=== PATIENT | male | born 1955 | race Caucasian/White ===

== ENCOUNTER 2025-04-29 11:25 | Inpatient (IN) | payer MEDICARE, OTHER, SELFPAY ==
[2025-04-29] VITALS (27 sets, daily range): BP systolic 92–137; BP diastolic 51–67; PULSE 69–85; RESP 13–25; TEMP 36.8–37.5; O2SAT 95–100; BMI 24.8
--- NOTE | ~2025-04-29 | CT_ITS ---
EXAMINATION: CT angiogram, abdomen and pelvis with contrast, GI bleed protocol: DATE: 04/29/2025, 2:09 PM. INDICATION: GI bleed. Prior medical history not available. TECHNIQUE: CT angiogram was performed with 100 cc of IV contrast in arterial phase of the abdomen and pelvis and reviewed in multiple projections. Radiation dose 380 MG Y C.M. COMPARISON: No prior imaging studies are available for comparison. FINDINGS: Lung bases show small to moderate size right pleural effusion and minimal left pleural effusion. Arterial phase examination through upper abdomen shows large ill-defined masses of the liver, predominantly involving left lobe with arterial phase enhancement. Significant thickening of the wall of the fundus of the stomach is noted. G-tube is in place. There is no evidence of arterial contrast extravasation into the GI tract. Moderate atherosclerotic disease of the proximal superior mesenteric artery. No free fluid noted in the peritoneal cavity. No lytic or blastic bone changes of lumbar spine and pelvic bones. Multilevel degenerative disc disease. IMPRESSION: 1. Limited evaluation due to lack of clinical and medical history and prior imaging studies for comparison. 2. There is no extravasation of arterial phase contrast within the GI tract. Delayed postcontrast phase was not obtained. 3. Irregular multiple arterial phase enhancing liver masses suggestive of metastatic disease to the liver or multifocal primary malignancy. 4. G-tube in place within the gastric antrum. Significant wall thickening of the gastric fundus and distal esophagus noted in the upper abdomen. Possible neoplasm of the esophagus and proximal stomach. Please correlate with clinical history. 5. Bilateral pleural effusion, [id number] on the right and minimal on the left. Reviewed, dictated and finalized at location [facility]. E OPERATOR IMPRESSION: 1. Limited evaluation due to lack of clinical and medical history and prior migel ging studies for comparison. 2. There is no extravasation of arterial phase contrast within the GI tract. De layed postcontrast phase was not obtained. 3. Irregular multiple arterial phase enhancing liver masses suggestive of metas tatic disease to the liver or multifocal primary malignancy. 4. G-tube in place within the gastric antrum. Significant wall thickening of th e gastric fundus and distal esophagus noted in the upper abdomen. Possible neop lasm of the esophagus and proximal stomach. Please correlate with clinical hist ory. 5. Bilateral pleural effusion, [id number] on the right and minimal on th e left.
[2025-04-29 13:13] LABS: Immature Granulocyte Percent A 0.8 % (0-0.5); Lymphocytes Absolute Auto 0.63 K/mm3 (0.9-3.2); Mean Corpuscular HGB Conc 31.0 g/dl (32-36); Mean Corpuscular Hemoglobin 24.3 pg (26-34); Mean Corpuscular Volume 78.4 fl (80-100); Nucleated Red Blood Cells Absolute Auto 0.000 K/mm3 (0.0-0.012); Nucleated Red Blood Cells Perc 0.0 % (0.0-0.2); Platelet Count Result 343 k/mm3 (150-375); Red Blood Count 2.59 M/mm3 (4.6-6.20); White Blood Count 7.8 K/mm3 (4.5-10.0)
[2025-04-29 13:17] LABS: Hematocrit 20.3 % (42.0-52.0); Hemoglobin 6.3 g/dL (14.0-18.0)
[2025-04-29 13:24] LABS: INR 1.3; Prothrombin Time 16.0 Seconds (11.1-14.7)
[2025-04-29 13:30] LABS: Alanine Aminotransferase 15 U/L (6-50); Albumin Level 2.8 g/dL (3.5-5.1); Alkaline Phosphatase 151 U/L (38-126); Anion Gap 2 mmol/L (4-12); Aspartate Amino Transferase 40 U/L (17-59); Bilirubin,Total 0.4 mg/dL (0.2-1.3); Blood Urea Nitrogen 17 mg/dL (9-20); Calcium 9.8 mg/dL (8.4-10.2); Carbon Dioxide 32 mmol/L (22-30); Chloride 97 mmol/L (98-107); Estimated CRCL calculation 60 ml/min; Estimated Glomerular Filt Rate > 60; Glucose 87 mg/dL (65-110); Potassium 4.3 mmol/L (3.4-5.0); Sodium 131 mmol/L (137-145); Total Protein 6.3 g/dL (6.3-8.2)
[2025-04-29] MEDS: CENTRAL LINE FLUSH 10 ML IV PUSH (14:09)
[2025-04-29] MEDS: SODIUM CHLORIDE 0.9% IV 1,000 ML 150 ML IV CONT (14:09)
[2025-04-29] MEDS: PANTOPRAZOLE SODIUM IV 40 MG VIAL IV PUSH ×2 (14:09→17:35)
--- NOTE | 2025-04-29 15:01 | ED_ITS ---
HPI - General Adult General Chief complaint: Recheck/Abnormal Lab/Rx Stated complaint: low hgb Time Seen by Provider: 04/29/25 12:30 Source: patient and family Mode of arrival: wheelchair Limitations: no limitations History of Present Illness HPI narrative: 70-year-old with a history of metastatic esophageal CA here with a complains of having low hemoglobin. Patient states that 2 weeks ago he received 2 units of blood in [place] where he is from his presently visiting his son here locally had blood work done yesterday which showed a hemoglobin of 6.9 was advised by his oncologist to go to the emergency room. Patient states that he has been having black color stool. Has a left upper quadrant pain which is been ongoing for quite some time. Denies any shortness of breath. No history of fever or chills. Onset (ago): day(s) (1) Location: abdomen Radiation: non-radiation Severity: mild Relieving factors: none Exacerbating factors: none Associated symptoms: denies other symptoms Related Data Allergies Allergy/AdvReac Type Severity Reaction Status Date / Time No Known Allergies Allergy Verified 04/29/25 12:47 Review of Systems 2 Review of Systems: All systems reviewed & are unremarkable except as noted in HPI and below Constitutional: Constitutional: Reports no additional constitutional complaints Eyes: Eyes: Reports no additional eye complaints ENT: Reports system reviewed and no additional complaints, except as documented Respiratory: Respiratory: Reports no additional respiratory complaints Gastrointestinal: Gastrointestinal: Reports as per HPI Musculoskeletal: Musculoskeletal: Reports no additional musculoskeletal complaints Exam 2 Narrative: GENERAL: Well-appearing, well-nourished, and in no acute distress. HEAD: Normocephalic, atraumatic. EYES: PERRLA and EOMI. ENT: Nares clear, no rhinorrhea or epistaxis. Mucous membranes moist. NECK: Supple. CHEST: Clear to auscultation. No respiratory distress. HEART: Regular rate and rhythm. No murmur heard. Normal peripheral pulses. ABDOMEN: Soft, , has G tube ,mild tenderness in the LUQ , nondistended, normal active bowel sounds. EXTREMITIES: Normal range of motion. No edema. SKIN: Warm, dry, no rash. NEURO: No focal deficits. Alert and oriented x3. PSYCH: Normal mood and affect. Course Course Emergency Course: Notified patient and his about the lab work, CT findings. Discussed with Dr. Mras will consult the patient. Will transfuse PRBC 2 units here in the hospital. Vital Signs Vital signs: Vital Signs Temperature 37.0 C 04/29/25 11:34 Pulse Rate 73 04/29/25 11:34 Respiratory Rate 18 04/29/25 11:34 Blood Pressure 92/51 L 04/29/25 11:34 Pulse Oximetry 100 04/29/25 11:34 Oxygen Delivery Room Air 04/29/25 11:34 Temperature 37.0 C 04/29/25 11:34 Pulse Rate 81 04/29/25 12:46 Respiratory Rate 21 H 04/29/25 12:46 Blood Pressure 111/62 04/29/25 12:46 Pulse Oximetry 98 04/29/25 12:46 Oxygen Delivery Room Air 04/29/25 11:34 MDM Differential Diagnosis Differential Diagnosis: upper gi bleed , geophageal varices Lab Data 04/29/25 13:07 04/29/25 13:07 Labs: Lab Results 04/29/25 Range/Units 13:07 WBC 7.8 (4.5-10.0) K/mm3 RBC 2.59 L (4.6-6.20) M/mm3 Hgb 6.3 L* (14.0-18.0) g/dL Hct 20.3 L* (42.0-52.0) % MCV 78.4 L (80-100) fl MCH 24.3 L (26-34) pg MCHC 31.0 L (32-36) g/dl RDW 19.8 H (11.5-14.5) % Plt Count 343 (150-375) k/mm3 MPV 9.7 (7.4-10.4) fl Immature Gran % (Auto) 0.8 H (0-0.5) % Neut % (Auto) 70.6 (45.5-73.1) % Lymph % (Auto) 8.1 L (18.3-44.2) % [place] % (Auto) 16.2 H (2.6-8.5) % Eos % (Auto) 3.7 (0-4.4) % Baso % (Auto) 0.6 (0.2-1.2) % Lymph # (Auto) 0.63 L (0.9-3.2) K/mm3 [place] # (Auto) 1.3 H (0.1-0.6) K/mm3 Eos # (Auto) 0.3 (0-0.3) K/mm3 Baso # (Auto) 0.1 (0.0-0.1) K/mm3 Abs Immat Gran (auto) 0.06 H (0.00-0.031) K/mm3 Absolute Neuts (auto) 5.5 (1.3-6.7) K/mm3 Absolute Nucleated RBC 0.000 (0.0-0.012) K/mm3 Nucleated RBC % 0.0 (0.0-0.2) % PT 16.0 H (11.1-14.7) Seconds INR 1.3 Sodium 131 L (137-145) mmol/L Potassium 4.3 (3.4-5.0) mmol/L Chloride 97 L (98-107) mmol/L Carbon Dioxide 32 H (22-30) mmol/L Anion Gap 2 L (4-12) mmol/L BUN 17 (9-20) mg/dL Creatinine 0.94 (0.7-1.3) mg/dL Estim Creat Clear Calc 60 ml/min Estimated GFR > 60 (59 - ) Glucose 87 (65-110) mg/dL Calcium 9.8 (8.4-10.2) mg/dL Total Bilirubin 0.4 (0.2-1.3) mg/dL AST 40 (17-59) U/L ALT 15 (6-50) U/L Alkaline Phosphatase 151 H (38-126) U/L Total Protein 6.3 (6.3-8.2) g/dL Albumin 2.8 L (3.5-5.1) g/dL Blood Type A Positive Antibody Screen Negative Crossmatch See Detail Imaging Data Radiologist's impression: ITS Impressions Abdomen/Pelvis CTA 04/29/25 14:09 IMPRESSION: 1. Limited evaluation due to lack of clinical and medical history and prior imaging studies for comparison. 2. There is no extravasation of arterial phase contrast within the GI tract. Delayed postcontrast phase was not obtained. 3. Irregular multiple arterial phase enhancing liver masses suggestive of metastatic disease to the liver or multifocal primary malignancy. 4. G-tube in place within the gastric antrum. Significant wall thickening of the gastric fundus and distal esophagus noted in the upper abdomen. Possible neoplasm of the esophagus and proximal stomach. Please correlate with clinical history. 5. Bilateral pleural effusion, [id number] on the right and minimal on the left. Critical Care Time Critical Care Time Critical Care Time: Yes Initial evaluation, discuss w/ involved parties, attempting to gather old records: 10 minutes Documenting medical record: 10 minutes Review of results (EKG's, labs, imaging): 10 minutes Serial repeat bedside evaluation: 10 minutes Discussing case with multiple memebers of the care team and consultants: 5 minutes Total Critical Care Time: 45 Critical Care Time Overview: blood transfusion Discharge Plan Discharge Clinical Impression: Anemia, 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 Patient Disposition: Still a Patient Condition: Stable Patient Language: [place] Island[place] Follow-up/Referrals: PHYSICIAN NOT ON STAFF,NONSTAFF [Primary Care Provider] Time of Disposition: 15:01
[2025-04-29] MEDS: SODIUM CHLORIDE 0.9% IV 250 ML 30 ML IV CONT (15:53)
--- NOTE | 2025-04-29 15:56 | P.HP_ITS ---
H&P: HPI History of Present Illness Date/Time: 04/29/25 15:56 Chief Complaint: Abnormal Hgb Narrative: 70 y/o M with PMH of metastatic stage 4 esophageal cancer presents here with abnormal hemoglobin. The patient presents here from a family's residence on 04/29 for further evaluation of a low hemoglobin. HPI obtained through patient report and the patient's . He is currently here to visit family for the holidays, currently lives in [place]. He has a history significant for stage IV esophageal cancer for which he follows with an oncologist, Dr. Arroyo out of [facility] oncology in [facility]. He has previously received chemotherapy for his cancer, however he is not currently receiving and has never previously underwent radiation. He is NPO at baseline and has a feeding tube in place. Per , they have been traveling a lot recently to see family and recently went to [place] to receive 3 vaccines as treatment for his cancer at [facility] (dendritic cell vaccine, LK? killer cell vaccine, and one other) that are not available in the . Oncologist aware that the patient and his went for these. However recently he has been having issues with his hemoglobin. reports approximately 1 month ago he was admitted due to anemia and required 1 unit initially. Then approximately 2 weeks later he again required a transfusion due to anemia and at that time received 2 units. Then prior to traveling here to visit family he received 2 more units on 04/25. For her patient's , his hemoglobin was 6.9 yesterday and repeat today was 6.3. Per his oncologist's recommendations since they have been traveling she recommended he have his hemoglobin checked weekly. When he gets back from this current trip (traveling back on 05/14) they plan to do an upper endoscopy as they believe he likely has an upper GI bleed causing his current/recurrent anemia. He has been having dark tarry stools for the past 3 weeks, denies bright red blood per rectum. He has additionally reporting some intermittent constipation with last bowel movement 4-5 days ago, however he reports at that time he had a decent amount out. Takes MiraLax daily. He has additionally received 2 iron transfusions 1 month ago, not on daily iron supplement. There is no current definitive plan in place in regards his cancer (continue chemo?, radiation?, ect) beyond obtaining an EGD when he gets back home. The patient currently reports fatigue and generalized weakness. No shortness of breath or chest pain. Initial VS at presentation: 98.6? F, HR 73, RR 18, 92/51, and 100% on RA. ED workup showed: No leukocytosis, hemoglobin 6.3/MCV 78.4/MCHC 31, INR 1.3, sodium 131, creatinine 0.94 and GFR >60, albumin 2.8. No previous lab work available for comparison. CTA of the abdomen/pelvis showed no extravasation of arterial phase contrast within the GI tract, irregular multiple arterial phase enhancing liver masses suggestive of metastatic disease to the liver of multifocal primary malignancy, G-tube in place within the gastric antrum, significant wall thickening of the gastric fundus and distal esophagus noted in the upper abdomen possible neoplasm the esophagus and proximal stomach, bilateral pleural effusion that is small to moderate on the right and minimal on the left. Review of Systems Review of Systems: All systems reviewed & are unremarkable except as noted in HPI and below PMFSH Past Medical History Medical History Gastrojejunal tube present Esophageal cancer, stage IV Iron deficiency anemia Surgical History Surgical History History of gastrostomy tube placement Meds Home Medications and Allergies Allergies Allergy/AdvReac Type Severity Reaction Status Date / Time No Known Allergies Allergy Verified 04/29/25 12:47 Vital Signs Vital Signs - 24 hr 04/29/25 11:34 04/29/25 12:45 04/29/25 12:46 Temperature 98.6 F Pulse Rate 73 81 Respiratory Rate 18 21 H Blood Pressure 92/51 L 111/62 Pulse Oximetry 100 99 98 Oxygen Delivery Room Air 04/29/25 15:50 Temperature 99.5 F Pulse Rate 76 Respiratory Rate 22 H Blood Pressure 127/62 Pulse Oximetry 97 Oxygen Delivery Exam Const: General: comfortable and no acute distress Other: , male, nontoxic appearance, modestly ill-appearing/fatigued HENMT: Face/Nose/Sinus: Normal nares present Mouth: Yes moist mucous membranes Eyes: General: appearance normal, both eyes and all related structures Sclera: sclerae normal Pupils: Equal, round and reactive pupils present EOM: EOMs intact bilaterally Resp: Effort & Inspection: normal respiratory effort Auscultation: clear to auscultation bilaterally Cardio: Rate: regular rate Rhythm: regular rhythm Other: S1-S2 present without murmur, rub, ectopy GI: Other: Abdomen soft, nondistended. G-tube present with no signs of infection. Normoactive bowel sounds in all quadrants. No tenderness on exam. Skin: General skin exam: normal color and no rashes or lesions noted Wounds: no wounds Neuro: Speech: normal speech Motor exam (neuro): 5/5 motor strength present throughout Sensory Exam: normal sensation Other: A&O x4 Extrem: General: normal to inspection Psych: Mental Status: mental status grossly normal Affect: normal affect Other: Good insight and judgment, pleasant Results Labs Labs: Short CBC 04/29/25 Range/Units 13:07 WBC 7.8 (4.5-10.0) K/mm3 Hgb 6.3 L* (14.0-18.0) g/dL Hct 20.3 L* (42.0-52.0) % Plt Count 343 (150-375) k/mm3 BMP 04/29/25 13:07 Sodium 131 L Potassium 4.3 Chloride 97 L Carbon Dioxide 32 H BUN 17 Creatinine 0.94 Glucose 87 Calcium 9.8 Liver Function 04/29/25 Range/Units 13:07 Total Bilirubin 0.4 (0.2-1.3) mg/dL AST 40 (17-59) U/L ALT 15 (6-50) U/L Alkaline Phosphatase 151 H (38-126) U/L Albumin 2.8 L (3.5-5.1) g/dL Quality VTE Prophylaxis VTE prophylaxis: mechanical ordered Assessment and Plan Assessment and plan (1) Anemia: Qualifiers: Anemia type: unspecified type Qualified Code(s): D64.9 - Anemia, unspecified Code(s): D64.9 - Anemia, unspecified Status: Acute Assessment and Plan: Patient here with recurrent anemia. Has recently become an issue within the past month for which he has received 5 units of PRBC (x1 -> x2 -> x2, most recent on 04/25) and 2 iron transfusions back in [place] where he primarily receives treatment. Currently here due to traveling for the holidays with plans to return to [place] on 05/14. PMH significant for stage IV esophageal cancer with metastases. Oncologist that is currently treating him and [place] is concern for an upper GI bleed, however he has not been able to undergo an EGD as he has been traveling recently to see his family members and to [place] to received 3 vaccines that are unavailable in the [place] Oncologist recommended weekly hemoglobin checks while he is traveling. Per , hemoglobin was 6.9 yesterday, 7.8 on 04/20, and 6.3 upon admission here on 04/29. Patient is to receive 2 units of PRBC. Noted to be initially soft at 92/51, currently stable at 118/64. - 2 units PRBC on 04/29, repeat H&H 1 hour post 2nd transfusion - recheck iron, TIBC, ferritin to reassess if patient needs additional iron transfusions - transfuse if <7 - trend H&H - GI consulted, suspect patient will need EGD during admission. See below. (2) GI bleed: Qualifiers: GI bleed type/associated pathology: unspecified gastrointestinal hemorrhage type Qualified Code(s): K92.2 - Gastrointestinal hemorrhage, unspecified Code(s): K92.2 - Gastrointestinal hemorrhage, unspecified Status: Acute Assessment and Plan: See HPI above. History of stage IV esophageal cancer. Oncologist that is treating him back in [place] suspected upper GI bleed, however he has not been able to undergo an EGD due to travel. Has received 5 units of PRBC and 2 iron transfusions for the recurrent anemia over the past month. Reporting dark tarry stools for the past 3 weeks. Denies bright red blood per rectum. - pantoprazole IV b.i.d. - GI consulted, suspect patient will require EGD during this admission - NPO - monitor H&H and BP (3) Esophageal cancer, stage IV: Code(s): C15.9 - Malignant neoplasm of esophagus, unspecified Status: Acute Assessment and Plan: Currently follows with Dr. Arroyo at [facility] oncology in [facility]. No current definitive plan in place for further treatment, has previously underwent chemotherapy but no radiation. Not currently receiving chemotherapy. Did recently travel to [place] for 3 vaccinations are not currently available in the [place] Suspect cancer currently complicated by upper GI bleed. Imaging * CTA of the abdomen/pelvis 1. Limited evaluation due to lack of clinical and medical history and prior imaging studies for comparison. 2. There is no extravasation of arterial phase contrast within the GI tract. Delayed postcontrast phase was not obtained. 3. Irregular multiple arterial phase enhancing liver masses suggestive of metastatic disease to the liver or multifocal primary malignancy. 4. G-tube in place within the gastric antrum. Significant wall thickening of the gastric fundus and distal esophagus noted in the upper abdomen. Possible neoplasm of the esophagus and proximal stomach. Please correlate with clinical history. 5. Bilateral pleural effusion, [id number] on the right and minimal on the left. (4) Gastrojejunal tube present: Code(s): Z93.1 - Gastrostomy status Status: Acute Assessment and Plan: G-tube present due to esophageal cancer. Currently receives Fiber[employer] HN 1.2 seth/mL 8.45 oz 3-4 times daily as push through tube and flushes with 8 oz of water x4 per day. - coupon manifest clerk consulted for tube feedings - hypoglycemia protocol - Accu-Cheks q.6 hours Plan Diet: NPO, tube feedings GI Prophylaxis: PPI IV BID DVT Prophylaxis: SCDs IV fluids: NS 125 mL/hour Lines/Tubes: pIV, G-tube Code Status: Full code Hospitalist [facility] Advance Care Plan I have confirmed that the patient's Advanced Care Plan is present, code status is documented, or surrogate decision maker is listed in patient medical record.: Yes Medication Reconciliation I have utilized all available resources to obtain, update and review the patients current medications (includes all prescriptions, OTC, herbals, cannabis, and nutritional supplements).: Yes
--- NOTE | 2025-04-29 16:42 | WPCEDHO ---
ED Hand Off Checklist All vitals saved:y IV Site documented:y All med administrations documented:y Triage Note Triage Note pt to ED w/ complaints of low hgb 04/29/25 11:34 . had his blood drawn yesterday at [facility] and hgb was 6.9. hgb was 7.8 on 04/20. states he has been having black stools for the past few weeks. hx of stage 4 esophageal cancer. has a port to the R. chest. Allergies No Known Allergies Allergy (Verified 04/29/25 12:47) Active Medications including assessments/comments Sodium Chloride (Normal Saline Iv) 1,000 mls @ 150 mls/hr IV CONT .Q6H40M STA Stop: 04/29/25 19:28 Last Admin: 04/29/25 14:09 Dose: 150 mls/hr Documented By: THO Infusion/Titration Document 04/29/25 14:09 THO (Rec: 04/29/25 14:09 ELB [id number]) Intake IV Site Port-a-Cath Right Chest Container Volume 1,000 Waste Amount 0 Dosing Infusion Rate 150 Cumulative Dose Not Applicable Increase/Decrease Started Elapsed Time Elapsed Time ( 0m minutes) Sodium Chloride (Normal Saline Iv) 250 mls @ 30 mls/hr IV CONT .Q8H20M STA Stop: 04/29/25 21:08 Last Admin: 04/29/25 15:53 Dose: 30 mls/hr Documented By: THO Infusion/Titration Document 04/29/25 15:53 THO (Rec: 04/29/25 15:53 ELB [id number]) Intake IV Site Port-a-Cath Right Chest Container Volume 250 Waste Amount 0 Dosing Infusion Rate 30 Cumulative Dose Not Applicable Increase/Decrease Started Elapsed Time Elapsed Time ( 0m minutes) Sodium Chloride (Central Line Flush) 10 ml IV PUSH Q8HR [facility] Last Admin: 04/29/25 14:09 Dose: 10 ml Documented By: THO Administered/Completed Medications Discontinued Medications Sodium Chloride (Normal Saline Iv) 1,000 mls @ 125 mls/hr IV CONT .Q8H [facility] Last Admin: 04/29/25 15:57 Dose: Not Given Documented By: THO Non-Admin Reason: Duplicate Dose IV Miscellaneous Supplies (Tubing, Blood Set) Confirm Administered Dose 1 each XX .STK-MED ONE Stop: 04/29/25 15:42 Last Admin: 04/29/25 15:53 Dose: Not Given Documented By: THO Non-Admin Reason: Charge Only Pantoprazole Sodium (Pantoprazole Sodium Iv 40 Mg Vial) 40 mg IV PUSH ONCE STA Stop: 04/29/25 12:51 Last Admin: 04/29/25 14:09 Dose: 40 mg Documented By: THO Interventions/Assessments General Assessment Start: 04/29/25 11:32 Freq: Status: Active Protocol: Document 04/29/25 12:46 ELB (Rec: 04/29/25 12:47 ELB [id number]) GA Neurological Assessment Neurological Yes Assessment WNL GA HEENT Assessment HEENT Assessment WNL Yes GA Cardiovascular Assessment Cardiovascular Yes Assessment WNL GA Respiratory Assessment Symptoms None GA Gastrointestinal Assessment Gastrointestinal Pain Symptoms GA Integumentary Assessment Sacrum Integumentary Area of Concern Symptoms Temperature Warm Skin Color Pale IV / Saline Lock, Insert Start: 04/29/25 11:32 Freq: Status: Active Protocol: Document 04/29/25 14:19 ELB (Rec: 04/29/25 14:20 ELB [id number]) IV Assessment Peripheral Access Right Forearm IV Catheter Access Initiated IV Insertion Date 04/29/25 IV Insertion Time 14:19 Catheter Gauge 20 IV Insertion 1 Attempts Ultrasound Used for No Placement IV Site Assessment WNL IV Care and WNL Maintenance Last Vital Signs Temperature 99.1 F 04/29/25 16:05 Pulse Rate 77 04/29/25 16:05 Respiratory Rate 20 04/29/25 16:05 Pulse Oximetry 99 04/29/25 16:05 Blood Pressure 118/64 04/29/25 16:05 Blood Pressure Mean 82 04/29/25 16:05 Blood Pressure Position Supine 04/29/25 16:05 Oxygen Delivery Room Air 04/29/25 11:34 Weight 70.4 kg 04/29/25 11:34 Last Result - Abnormals Only RBC 2.59 M/mm3 (4.6-6.20) L 04/29/25 13:07 Hgb 6.3 g/dL (14.0-18.0) L* 04/29/25 13:07 Hct 20.3 % (42.0-52.0) L* 04/29/25 13:07 MCV 78.4 fl (80-100) L 04/29/25 13:07 MCH 24.3 pg (26-34) L 04/29/25 13:07 MCHC 31.0 g/dl (32-36) L 04/29/25 13:07 RDW 19.8 % (11.5-14.5) H 04/29/25 13:07 Immature Gran % (Auto) 0.8 % (0-0.5) H 04/29/25 13:07 Lymph % (Auto) 8.1 % (18.3-44.2) L 04/29/25 13:07 [place] % (Auto) 16.2 % (2.6-8.5) H 04/29/25 13:07 Lymph # (Auto) 0.63 K/mm3 (0.9-3.2) L 04/29/25 13:07 [place] # (Auto) 1.3 K/mm3 (0.1-0.6) H 04/29/25 13:07 Abs Immat Gran (auto) 0.06 K/mm3 (0.00-0.031) H 04/29/25 13:07 PT 16.0 Seconds (11.1-14.7) H 04/29/25 13:07 Sodium 131 mmol/L (137-145) L 04/29/25 13:07 Chloride 97 mmol/L (98-107) L 04/29/25 13:07 Carbon Dioxide 32 mmol/L (22-30) H 04/29/25 13:07 Anion Gap 2 mmol/L (4-12) L 04/29/25 13:07 Alkaline Phosphatase 151 U/L (38-126) H 04/29/25 13:07 Albumin 2.8 g/dL (3.5-5.1) L 04/29/25 13:07 Crossmatch See Detail 04/29/25 13:07 Most Recent Suicide Severity Rating Suicide Severity Rating NO RISK INDICATED 04/29/25 11:34
--- NOTE | 2025-04-29 17:20 | PC.NURSE ---
Pt seen ambulating down hallway with cords to monitor ripped out and IV pole with IV fluids and blood transfusion hanging on. Pt states, I need to use the bathroom. Upon pt and this RN entering pts room, this RN discovered pt had stopped his blood transfusion and the blood was clotted in the tubing. This RN replaced blood transfusion tubing and educated pt on not stopping his blood transfusion. Pt educated on how to use the call button whenever he needs to use the bathroom. Pt verbalized understanding.
--- NOTE | 2025-04-29 18:14 | PC.NURSE ---
Called pts and gave update on pts room number for admission.
[2025-04-29] MEDS: SODIUM CHLORIDE 0.9% IV 250 ML 30 ML (23:05)
[2025-04-29] MEDS: HYDROcodone/acetaminophen (*CRX) 10-325 MG TABLET 1 TAB FEED TUBE (23:20)
[2025-04-29] MEDS: CYCLOBENZAPRINE HCL 10 MG TABLET FEED TUBE (23:20)
[2025-04-29] MEDS: SODIUM CHLORIDE 0.9% IV 1,000 ML 75 ML IV CONT (23:22)
[2025-04-30 01:08] LABS: Hematocrit 23.2 % (42.0-52.0); Hemoglobin 7.4 g/dL (14.0-18.0)
[2025-04-30 05:15] VITALS: BP 119/61; PULSE 69; RESP 18; TEMP 36.6; O2SAT 98
[2025-04-30] MEDS: HYDROcodone/acetaminophen (*CRX) 10-325 MG TABLET 1 TAB FEED TUBE ×3 (05:48→21:42)
[2025-04-30 06:12] LABS: Hematocrit 22.7 % (42.0-52.0); Hemoglobin 7.2 g/dL (14.0-18.0); Immature Granulocyte Percent A 0.9 % (0-0.5); Lymphocytes Absolute Auto 0.73 K/mm3 (0.9-3.2); Mean Corpuscular HGB Conc 31.7 g/dl (32-36); Mean Corpuscular Hemoglobin 24.7 pg (26-34); Mean Corpuscular Volume 78.0 fl (80-100); Nucleated Red Blood Cells Absolute Auto 0.000 K/mm3 (0.0-0.012); Nucleated Red Blood Cells Perc 0.0 % (0.0-0.2); Platelet Count Result 355 k/mm3 (150-375); Red Blood Count 2.91 M/mm3 (4.6-6.20); White Blood Count 7.9 K/mm3 (4.5-10.0)
[2025-04-30 06:41] LABS: Anion Gap 2 mmol/L (4-12); Blood Urea Nitrogen 16 mg/dL (9-20); Calcium 9.0 mg/dL (8.4-10.2); Carbon Dioxide 28 mmol/L (22-30); Chloride 100 mmol/L (98-107); Estimated CRCL calculation 62 ml/min; Estimated Glomerular Filt Rate > 60; Glucose 77 mg/dL (65-110); Iron 20 ug/dL (49-181); Potassium 4.3 mmol/L (3.4-5.0); Sodium 130 mmol/L (137-145)
[2025-04-30 06:50] LABS: Percent Iron Saturation 16 % (20-50)
[2025-04-30 07:18] LABS: Thyroid Stimulating Hormone Reflex 1.440 uIU/mL (0.465-4.68)
[2025-04-30 07:52] LABS: Vitamin B12 863.0 pg/mL (239-931)
[2025-04-30] MEDS: PANTOPRAZOLE SODIUM IV 40 MG VIAL IV PUSH ×2 (08:19→16:31)
--- NOTE | 2025-04-30 08:25 | P.CONGI_ITS ---
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 Upper GI bleed/Stage 4 esophageal cancer with mets/LUQ pain/abnormal imaging digestive/PEG tube/anemia: Last EGD > a year ago and last colonoscopy within the past 6 months. Patient diagnosed with esophageal cancer early last year. He is on chemotherapy but no radiation. He has a PEG tube in place and has been NPO. Tube feedings include FiberSource HTN 3-4 daily. He recently went to [place] to receive 3 vaccines as treatment for his cancer at [facility] (dendritic cell vaccine, LK? killer cell vaccine, and one other) that are not available in the [place]. Following his treatment in [place] he started having lower GI issues and underwent colonoscopy which he states showed ulcerative colitis. Patient was treated with high-dose steroids and Remicade which she took for a few months before discontinuing. Unclear if he truly had IBD or if this was just treatment induced colitis as I do not have endoscopy records to review. He is in the local area visiting family and after having blood work ordered by his oncologist in [place], he was noted to have a hemoglobin in the 6's and was advised to go to the ER. One admission Hgb 6.3 and after 2 units PRBC's 7.2. Labs today showed WBCs 8, HGB 7.2, HCT 23, MCV 78, platelets 355, INR 1.3. Total iron 20, TIBC 126, iron saturation 16% and ferritin 1230. CTA showed G- tube in place within the gastric antrum. Significant wall thickening of the gastric fundus and distal esophagus noted in the upper abdomen. According to patient his in combination to his esophageal cancer he also has known mets to the stomach and liver, this is likely what is seen on his CTA. Patient admits to chronic intermittent upper abdominal pain that was 1st occurring in his left upper quadrant but has now also been occurring as right upper quadrant. He describes his pain as a soreness. This pain typically improves with pain medication. He admits to black tarry stools over the past 2-3 weeks. Prior to onset of melena he was taking ibuprofen 600-800 mg alternated with Tylenol a 1000 mg daily. Patient was advised by his other provider to discontinue NSAIDs and his pain medication was increased from 5/325 to 10/325 to be taken in combination with Flexeril. DDX: Peptic ulcer disease versus AVM versus gastritis or esophagitis versus upper GI bleeding secondary to known metastatic cancer versus small bowel source of bleeding. * Avoid NSAID's and aspirin containing products * Continue monitoring H&H and transfuse as needed to keep HGB > 7 * Plan for EGD tomorrow * Continue supportive care with pain management and antiemetics if needed * Okay to restart tube feedings today * NPO after midnight * Further recommendations to follow endoscopy 2. Hyponatremia: Labs today show sodium at 130 but BMP otherwise normal. Potassium 4.3. * Primary care team to correct/improved prior to endoscopy tomorrow Thank you very much for allowing me to share in the care of this very nice patient. This report may have been done utilizing a voice recognition system. Attempts have been made to correct errors. However, there may be uncorrected grammatical, spelling, and recognition errors present. GI Consult Note Consult date/time: 04/30/25 08:25 Reason for consult: GI bleed HPI: Ector Briceño is a 70 year old male PMSH of metastatic esophageal cancer, PEG tube and treatment induced colitis. He presented to the emergency room yesterday after outpatient labs showed that his hemoglobin was at 6. GI has been consulted for GI bleed and anemia. Patient was accompanied by his Melissa throughout the entire visit. Patient states that he was relatively healthy without any known medical conditions until last year when he started have upper GI symptoms and EGD showed esophageal cancer. He has a PEG tube in place and has been taking in no oral intake and getting tube feedings with Fibersource HN 3-4 daily. He follows with an oncologist, Dr. Arroyo out of [facility] oncology in [facility]. He has previously received chemotherapy for his cancer, however he is not currently receiving and has never previously underwent radiation. He recently went to [place] to receive 3 vaccines as treatment for his cancer at [facility] (dendritic cell vaccine, LK? killer cell vaccine, and one other) that are not available in the [place]. Following his treatment in [place] patient started having lower GI issues and underwent a colonoscopy which he states showed ulcerative colitis, patient states that he was treated with high-dose prednisone and was started on Remicade. Patient was only on Remicade for a few months before was discontinued. Patient denies any known history of IBD before treatment so is unclear if it was truly IBD versus treatment induced colitis as I do not have the endoscopy records to review. He states that recently he has been traveling quite a bit visiting family and prior to his trip to the local area he was found to be anemic and received 2 units of PRBCs on April 26. Upon presentation to the emergency room labs showed hemoglobin of 6.3 and he received 2 units of PRBCs this admission and this morning HGB 7.2. He admits to black tarry stools that has been occurring for the past 2-3 weeks. He was previously taking 600-800 mg of ibuprofen alternated with a 1000 mg of Tylenol daily for pain. Prior to this trip his provider advised him to discontinue NSAID use in the increased his pain medication from 5/325-10/325 to be taken in combination with Flexeril. He complains of intermittent upper abdominal pain that started in his left upper quadrant and has now also started in his right upper quadrant. He describes this pain as an intermittent soreness. In combination with his black tarry stools he has also been having looser than normal bowel movements that sometimes are small and incomplete. He was previously using Imodium on an as-needed basis but states that this caused constipation so he discontinued the Imodium and has been using MiraLax as needed. He has chronic dysphagia. Denies any odynophagia, nausea, vomiting, bloating, reflux or regurgitation. Since starting cancer treatment he is lost weight but this is unmeasured and also admits to a decreased appetite. He denies any constipation that is not medication induced and also denies any hematochezia. He is no longer taking NSAIDs including aspirin. He is not on any anticoagulants. He was previously drinking 2 beers a day but has not done this for over a year. Denies any tobacco or marijuana use. Family history negative for CRC or IBD. ENDOSCOPY HISTORY: EGD: Per patient last EGD > 1 year ago at which time he was diagnosed with esophageal cancer COLONOSCOPY: Patient states he had a colonoscopy within the last 6 months. Following his treatment in [place] he started having a change in bowel habits and rectal bleeding and per patient his colonoscopy showed ulcerative colitis. LABS AND STOOL STUDIES: Labs 04/29-: Sodium 130, potassium 4.3, BUN 16, creatinine 0.91, GFR >60, calcium 9.0 WBC 8, Hgb 6.3-->7.2, Hct 20-->23, MCV 78, platelets 355, INR 1.3 Total bilirubin 0.4, AST 40, ALT 15, Alkaline Phos 151, albumin 2.8 Total iron 20, TIBC 126, iron sat 16%, ferritin 1230 B12 863, folate 11.5 and TSH 1.440 IMAGING: CTA abd/pelvis w/contrast 04/29/2025: IMPRESSION: 1. Limited evaluation due to lack of clinical and medical history and prior imaging studies for comparison. 2. There is no extravasation of arterial phase contrast within the GI tract. Delayed postcontrast phase was not obtained. 3. Irregular multiple arterial phase enhancing liver masses suggestive of metastatic disease to the liver or multifocal primary malignancy. 4. G-tube in place within the gastric antrum. Significant wall thickening of the gastric fundus and distal esophagus noted in the upper abdomen. Possible neoplasm of the esophagus and proximal stomach. Please correlate with clinical history. 5. Bilateral pleural effusion, [id number] on the right and minimal on the left. [facility] Past Medical History Medical History Gastrojejunal tube present Esophageal cancer, stage IV Iron deficiency anemia Surgical History Surgical History History of gastrostomy tube placement Social History Social History Smoking status: Never smoker Alcohol intake: former Substance use type: does not use Lack of Transportation: No Lack of Food: Never True Current Housing: I Have Housing Concerned About Future Housing: No Difficulty Paying Gas/Electric Bills: No Difficulty Paying for Meds: No Currently Unemployed: No Education: Trade/Vocational Certificate Difficulty w/ Childcare or Family Care: No Spiritual care concerns: No Meds Home Medications and Allergies Home Medications ?Medication ?Instructions ?Recorded ?Confirmed ?Type cyclobenzaprine 5 mg tablet 10 mg feeding tube Q8H PRN muscle 04/29/25 04/29/25 History spasm hydrocodone 10 mg-acetaminophen 1 tablet feeding tube Q6H PRN pain 04/29/25 04/29/25 History 325 mg tablet Allergies Allergy/AdvReac Type Severity Reaction Status Date / Time No Known Allergies Allergy Verified 04/29/25 18:59 Vital Signs Vital Signs - 24 hr 04/29/25 11:34 04/29/25 12:45 04/29/25 12:46 Temperature 98.6 F Pulse Rate 73 81 Respiratory Rate 18 21 H Blood Pressure 92/51 L 111/62 Pulse Oximetry 100 99 98 Oxygen Delivery Room Air 04/29/25 12:47 04/29/25 13:00 04/29/25 13:01 Temperature Pulse Rate 85 70 75 Respiratory Rate 18 20 19 Blood Pressure 114/59 L Pulse Oximetry 97 97 98 Oxygen Delivery 04/29/25 13:15 04/29/25 13:16 04/29/25 13:30 Temperature Pulse Rate 69 70 70 Respiratory Rate 20 20 18 Blood Pressure 112/58 L Pulse Oximetry 97 97 97 Oxygen Delivery 04/29/25 13:45 04/29/25 14:07 04/29/25 14:15 Temperature Pulse Rate 69 70 Respiratory Rate 19 19 Blood Pressure Pulse Oximetry 97 99 Oxygen Delivery 04/29/25 14:17 04/29/25 14:30 04/29/25 14:31 Temperature Pulse Rate 71 75 73 Respiratory Rate 20 16 19 Blood Pressure 130/60 124/63 Pulse Oximetry 96 98 Oxygen Delivery 04/29/25 15:00 04/29/25 15:01 04/29/25 15:02 Temperature Pulse Rate 78 78 77 Respiratory Rate 19 20 20 Blood Pressure 126/59 L 120/60 Pulse Oximetry 99 97 Oxygen Delivery 04/29/25 15:50 04/29/25 15:50 04/29/25 16:05 Temperature 99.5 F 99.5 F 99.1 F Pulse Rate 76 78 77 Respiratory Rate 22 H 17 20 Blood Pressure 127/62 124/63 118/64 Pulse Oximetry 97 97 99 Oxygen Delivery 04/29/25 17:05 04/29/25 18:05 04/29/25 20:00 Temperature 98.3 F 98.5 F Pulse Rate 80 75 Respiratory Rate 13 25 H Blood Pressure 119/67 137/65 Pulse Oximetry 98 98 Oxygen Delivery Room Air 04/29/25 20:45 04/29/25 20:45 04/29/25 20:46 Temperature 98.6 F 98.6 F 98.6 F Pulse Rate 79 79 79 Respiratory Rate 24 H 24 H 24 H Blood Pressure 121/57 L 121/57 L 121/57 L Pulse Oximetry 95 95 95 Oxygen Delivery 04/29/25 20:58 04/29/25 21:05 04/29/25 23:02 Temperature 98.2 F 98.2 F 99.5 F Pulse Rate 77 77 83 Respiratory Rate 20 20 19 Blood Pressure 129/59 L 129/59 L 119/65 Pulse Oximetry 96 96 97 Oxygen Delivery 04/30/25 05:15 Temperature 97.9 F Pulse Rate 69 Respiratory Rate 18 Blood Pressure 119/61 Pulse Oximetry 98 Oxygen Delivery Results Labs 04/30/25 06:01 04/30/25 06:01 Labs: Short CBC 04/29/25 04/30/25 04/30/25 Range/Units 13:07 00:57 06:01 WBC 7.8 7.9 (4.5-10.0) K/mm3 Hgb 6.3 L* 7.4 L 7.2 L (14.0-18.0) g/dL Hct 20.3 L* 23.2 L 22.7 L (42.0-52.0) % Plt Count 343 355 (150-375) k/mm3 BMP 04/29/25 04/30/25 13:07 06:01 Sodium 131 L 130 L Potassium 4.3 4.3 Chloride 97 L 100 Carbon Dioxide 32 H 28 BUN 17 16 Creatinine 0.94 0.91 Glucose 87 77 Calcium 9.8 9.0 Liver Function 04/29/25 Range/Units 13:07 Total Bilirubin 0.4 (0.2-1.3) mg/dL AST 40 (17-59) U/L ALT 15 (6-50) U/L Alkaline Phosphatase 151 H (38-126) U/L Albumin 2.8 L (3.5-5.1) g/dL
[2025-04-30 12:04] VITALS: BMI 24.8
[2025-04-30] MEDS: CENTRAL LINE FLUSH 10 ML IV PUSH ×2 (13:17→21:30)
--- NOTE | 2025-04-30 13:49 | P.CDI_ITS ---
CDI Query Clarification Request BMI: 24.9 Nutritional Diagnostic Statement: Please refer to the comprehensive nutrition assessment for further information. If you agree with diagnosis of Severe Protein Calorie Malnutrition as related to inadequate protein energy intake with increased protein energy needs in setting of chronic disease (cancer) as evidenced by significant weight loss of 12 ibs in > 2 months; moderate subcutaneous fat loss (orbital fat pads) and muscle wasting (temporalis). Please specify severity if known: * Mild * Moderate * Severe * Other/Unknown <Sona Moss RN - Last Filed: 04/30/25 13:49> Clarified Diagnosis Clarified Diagnosis: mild <Sunni Packer APRN - Last Filed: 04/30/25 13:51>
[2025-04-30 14:00] VITALS: BP 114/56; PULSE 79; RESP 21; TEMP 36.6; O2SAT 96
--- NOTE | 2025-04-30 15:08 | P.PNIM_ITS ---
Assessment and Plan Assessment and Plan (1) Anemia: Qualifiers: Anemia type: unspecified type Qualified Code(s): D64.9 - Anemia, unspecified Code(s): D64.9 - Anemia, unspecified Status: Acute Assessment and Plan: Patient here with recurrent anemia. Has recently become an issue within the past month for which he has received 5 units of PRBC (x1 -> x2 -> x2, most recent on 04/25) and 2 iron transfusions back in [place] where he primarily receives treatment. Currently here due to traveling for the holidays with plans to return to [place] on 05/14. PMH significant for stage IV esophageal cancer with metastases. Oncologist that is currently treating him and [place] is concern for an upper GI bleed, however he has not been able to undergo an EGD as he has been traveling recently to see his family members and to [place] to received 3 vaccines that are unavailable in the [place] Oncologist recommended weekly hemoglobin checks while he is traveling. Per , hemoglobin was 6.9 yesterday, 7.8 on 04/20, and 6.3 upon admission here on 04/29. Patient is to receive 2 units of PRBC. Noted to be initially soft at 92/51, currently stable at 118/64. - 2 units PRBC on 04/29, repeat H&H 1 hour post 2nd transfusion - recheck iron, TIBC, ferritin to reassess if patient needs additional iron transfusions - transfuse if <7 - trend H&H - GI consulted, suspect patient will need EGD during admission. See below. EGD tommrw. NPO at night night ok to resume home tube feeds for right now. (2) GI bleed: Qualifiers: GI bleed type/associated pathology: unspecified gastrointestinal hemorrhage type Qualified Code(s): K92.2 - Gastrointestinal hemorrhage, unspecified Code(s): K92.2 - Gastrointestinal hemorrhage, unspecified Status: Acute Assessment and Plan: See HPI above. History of stage IV esophageal cancer. Oncologist that is treating him back in [place] suspected upper GI bleed, however he has not been able to undergo an EGD due to travel. Has received 5 units of PRBC and 2 iron transfusions for the recurrent anemia over the past month. Reporting dark tarry stools for the past 3 weeks. Denies bright red blood per rectum. - pantoprazole IV b.i.d. - GI consulted, suspect patient will require EGD during this admission - NPO - monitor H&H and BP (3) Esophageal cancer, stage IV: Code(s): C15.9 - Malignant neoplasm of esophagus, unspecified Status: Acute Assessment and Plan: Currently follows with Dr. Arroyo at [facility] oncology in [facility]. No current definitive plan in place for further treatment, has previously underwent chemotherapy but no radiation. Not currently receiving chemotherapy. Did recently travel to [place] for 3 vaccinations are not currently available in the [place] Suspect cancer currently complicated by upper GI bleed. Imaging * CTA of the abdomen/pelvis 1. Limited evaluation due to lack of clinical and medical history and prior imaging studies for comparison. 2. There is no extravasation of arterial phase contrast within the GI tract. Delayed postcontrast phase was not obtained. 3. Irregular multiple arterial phase enhancing liver masses suggestive of metastatic disease to the liver or multifocal primary malignancy. 4. G-tube in place within the gastric antrum. Significant wall thickening of the gastric fundus and distal esophagus noted in the upper abdomen. Possible neoplasm of the esophagus and proximal stomach. Please correlate with clinical history. 5. Bilateral pleural effusion, [id number] on the right and minimal on the left. (4) Gastrojejunal tube present: Code(s): Z93.1 - Gastrostomy status Status: Acute Assessment and Plan: G-tube present due to esophageal cancer. Currently receives FiberSource HN 1.2 seth/mL 8.45 oz 3-4 times daily as push through tube and flushes with 8 oz of water x4 per day. - metabolic specialist consulted for tube feedings - hypoglycemia protocol - Accu-Cheks q.6 hours Plan Diet: NPO, tube feedings GI Prophylaxis: PPI IV BID DVT Prophylaxis: SCDs IV fluids: NS 125 mL/hour Lines/Tubes: pIV, G-tube Code Status: Full code Medical Record Review I have reviewed the following patient records and this information was taken into consideration when formulating the assessment and plan.: previous labs and previous clinic visits Time Spent With Patient Time with patient: Greater than 35 minutes Subjective Date/time seen: 04/30/25 15:08 Interval history: 70 y/o M with PMH of metastatic stage 4 esophageal cancer presents here with abnormal hemoglobin. The patient presents here from a family's residence on 04/29 for further evaluation of a low hemoglobin. HPI obtained through patient report and the patient's . He is currently here to visit family for the holidays, currently lives in [place]. He has a history significant for stage IV esophageal cancer for which he follows with an oncologist, Dr. Arroyo out of [facility] oncology in [facility]. He has previously received chemotherapy for his cancer, however he is not currently receiving and has never previously underwent radiation. He is NPO at baseline and has a feeding tube in place. Per , they have been traveling a lot recently to see family and recently went to [place] to receive 3 vaccines as treatment for his cancer at [facility] (dendritic cell vaccine, LK? killer cell vaccine, and one other) that are not available in the [place]. Oncologist aware that the patient and his went for these. However recently he has been having issues with his hemoglobin. reports approximately 1 month ago he was admitted due to anemia and required 1 unit initially. Then approximately 2 weeks later he again required a transfusion due to anemia and at that time received 2 units. Then prior to traveling here to visit family he received 2 more units on 04/25. For her patient's , his hemoglobin was 6.9 yesterday and repeat today was 6.3. Per his oncologist's recommendations since they have been traveling she recommended he have his hemoglobin checked weekly. When he gets back from this current trip (traveling back on 05/14) they plan to do an upper endoscopy as they believe he likely has an upper GI bleed causing his current/recurrent anemia. He has been having dark tarry stools for the past 3 weeks, denies bright red blood per rectum. He has additionally reporting some intermittent constipation with last bowel movement 4-5 days ago, however he reports at that time he had a decent amount out. Takes MiraLax daily. He has additionally received 2 iron transfusions 1 month ago, not on daily iron supplement. There is no current definitive plan in place in regards his cancer (continue chemo?, radiation?, ect) beyond obtaining an EGD when he gets back home. The patient currently reports fatigue and generalized weakness. No shortness of breath or chest pain. Initial VS at presentation: 98.6? F, HR 73, RR 18, 92/51, and 100% on RA. ED workup showed: No leukocytosis, hemoglobin 6.3/MCV 78.4/MCHC 31, INR 1.3, sodium 131, creatinine 0.94 and GFR >60, albumin 2.8. No previous lab work available for comparison. CTA of the abdomen/pelvis showed no extravasation of arterial phase contrast within the GI tract, irregular multiple arterial phase enhancing liver masses suggestive of metastatic disease to the liver of multifocal primary malignancy, G-tube in place within the gastric antrum, significant wall thickening of the gastric fundus and distal esophagus noted in the upper abdomen possible neoplasm the esophagus and proximal stomach, bilateral pleural effusion that is small to moderate on the right and minimal on the left. pt is seen and examined. Will resume pt home tube feedings. GI is consulted. Plan for EGD tomorrow NPO at midnight. Review of Systems Review of Systems: All systems reviewed & are unremarkable except as noted in HPI and below Exam Const: General: comfortable and no acute distress Other: , male, nontoxic appearance, modestly ill-appearing/fatigued HENMT: Face/Nose/Sinus: Normal nares present Mouth: Yes moist mucous membranes Eyes: General: appearance normal, both eyes and all related structures Sclera: sclerae normal Pupils: Equal, round and reactive pupils present EOM: EOMs intact bilaterally Resp: Effort & Inspection: normal respiratory effort Auscultation: clear to auscultation bilaterally Cardio: Rate: regular rate Rhythm: regular rhythm Other: S1-S2 present without murmur, rub, ectopy GI: Other: Abdomen soft, nondistended. G-tube present with no signs of infection. Normoactive bowel sounds in all quadrants. No tenderness on exam. Skin: General skin exam: normal color and no rashes or lesions noted Wounds: no wounds Neuro: Cranial nerves: Yes Equal, round and reactive pupils present Speech: normal speech Motor exam (neuro): 5/5 motor strength present throughout Sensory Exam: normal sensation Other: A&O x4 Extrem: General: normal to inspection Psych: Mental Status: mental status grossly normal Affect: normal affect Other: Good insight and judgment, pleasant Objective Data Vital Signs Vital Signs: Vital Signs - 24 hr 04/29/25 15:50 04/29/25 15:50 04/29/25 16:05 Temperature 99.5 F 99.5 F 99.1 F Pulse Rate 76 78 77 Respiratory Rate 22 H 17 20 Blood Pressure 127/62 124/63 118/64 Pulse Oximetry 97 97 99 Oxygen Delivery 04/29/25 17:05 04/29/25 18:05 04/29/25 20:00 Temperature 98.3 F 98.5 F Pulse Rate 80 75 Respiratory Rate 13 25 H Blood Pressure 119/67 137/65 Pulse Oximetry 98 98 Oxygen Delivery Room Air 04/29/25 20:45 04/29/25 20:45 04/29/25 20:46 Temperature 98.6 F 98.6 F 98.6 F Pulse Rate 79 79 79 Respiratory Rate 24 H 24 H 24 H Blood Pressure 121/57 L 121/57 L 121/57 L Pulse Oximetry 95 95 95 Oxygen Delivery 04/29/25 20:58 04/29/25 21:05 04/29/25 23:02 Temperature 98.2 F 98.2 F 99.5 F Pulse Rate 77 77 83 Respiratory Rate 20 20 19 Blood Pressure 129/59 L 129/59 L 119/65 Pulse Oximetry 96 96 97 Oxygen Delivery 04/30/25 05:15 04/30/25 08:00 04/30/25 14:00 Temperature 97.9 F 97.8 F Pulse Rate 69 79 Respiratory Rate 18 21 H Blood Pressure 119/61 114/56 L Pulse Oximetry 98 96 Oxygen Delivery Room Air Intake/Output Intake/Output: Intake & Output 04/27/25 04/28/25 04/29/25 04/30/25 23:59 23:59 23:59 23:59 Intake Total 950 297 Balance 950 297 Meds/Results Medications: Active Medications Generic Name Dose Route Start Last Admin Trade Name Freq PRN Reason Stop Dose Admin Acetaminophen 650 mg 04/29/25 16:48 Acetaminophen Elixir 325 Mg/10.15 Ml Udc FEED TUBE Q4H PRN Mild Pain (1-3) or Fever Hydrocodone Bitart/Acetaminophen 1 tab 04/29/25 22:59 04/30/25 05:48 Hydrocodone/Acetaminophen (*Crx) 10-325 Mg Tablet FEED TUBE 1 tab Q6H PRN Administration PAIN RATED 7-10 Cyclobenzaprine HCl 10 mg 04/29/25 22:59 04/29/25 23:20 Cyclobenzaprine Hcl 10 Mg Tablet FEED TUBE 10 mg Q8H PRN Administration Muscle Spasm Heparin Sodium (Beef Lung) 50 units 04/30/25 09:00 04/30/25 09:40 Heparin Flush 50 Units/5 Ml Syringe IV PUSH Not Given QAM YADI Heparin Sodium (Beef Lung) 50 units 04/29/25 13:14 Heparin Flush 50 Units/5 Ml Syringe IV PUSH PRN PRN after intermittent infusion Heparin Sodium (Beef Lung) 50 units 04/29/25 13:14 Heparin Flush 50 Units/5 Ml Syringe IV PUSH PRN PRN after blood draws Heparin Sodium (Porcine) 500 units 04/29/25 13:14 Heparin Sodium Lock Flush 500 Units/5 Ml Syringe IV PUSH PRN PRN see comments below Morphine Sulfate 2 mg 04/29/25 16:56 Morphine Sulfate (*Crx) 4 Mg/Ml Inj IV PUSH Q4H PRN Pain Rated 4-6 Morphine Sulfate 4 mg 04/29/25 16:56 Morphine Sulfate (*Crx) 4 Mg/Ml Inj IV PUSH Q4H PRN Pain Rated 7-10 Naloxone HCl 0.1 mg 04/29/25 16:56 Naloxone Hcl 0.4 Mg/Ml Vial IV PUSH Q5MIN PRN Sedation Pantoprazole Sodium 40 mg 04/29/25 17:00 04/30/25 08:19 Pantoprazole Sodium Iv 40 Mg Vial IV PUSH 40 mg BID YADI Administration Polyethylene Glycol 17 gm 04/30/25 09:00 04/30/25 10:16 Polyethylene Glycol 3350 17 Gm Powd.Pack FEED TUBE Not Given QAM YADI Sodium Chloride 10 ml 04/29/25 14:00 04/30/25 13:17 Central Line Flush IV PUSH 10 ml Q8HR YADI Administration Radiology Results: ITS Impressions Abdomen/Pelvis CTA 04/29/25 14:09 IMPRESSION: 1. Limited evaluation due to lack of clinical and medical history and prior imaging studies for comparison. 2. There is no extravasation of arterial phase contrast within the GI tract. Delayed postcontrast phase was not obtained. 3. Irregular multiple arterial phase enhancing liver masses suggestive of metastatic disease to the liver or multifocal primary malignancy. 4. G-tube in place within the gastric antrum. Significant wall thickening of the gastric fundus and distal esophagus noted in the upper abdomen. Possible neoplasm of the esophagus and proximal stomach. Please correlate with clinical history. 5. Bilateral pleural effusion, [id number] on the right and minimal on the left. Labs Labs: Laboratory Results - last 24 hr 04/29/25 04/30/25 04/30/25 13:07 00:57 06:01 WBC 7.9 RBC 2.91 L Hgb 7.4 L 7.2 L Hct 23.2 L 22.7 L MCV 78.0 L MCH 24.7 L MCHC 31.7 L RDW 19.5 H Plt Count 355 MPV 10.0 Immature Gran % (Auto) 0.9 H Neut % (Auto) 70.9 Lymph % (Auto) 9.2 L Morris % (Auto) 14.5 H Eos % (Auto) 3.7 Baso % (Auto) 0.8 Lymph # (Auto) 0.73 L Morris # (Auto) 1.2 H Eos # (Auto) 0.3 Baso # (Auto) 0.1 Abs Immat Gran (auto) 0.07 H Absolute Neuts (auto) 5.6 Absolute Nucleated RBC 0.000 Nucleated RBC % 0.0 Sodium 130 L Potassium 4.3 Chloride 100 Carbon Dioxide 28 Anion Gap 2 L BUN 16 Creatinine 0.91 Estim Creat Clear Calc 62 Estimated GFR > 60 Glucose 77 Calcium 9.0 Iron 20 L TIBC 126 L % Saturation 16 L Ferritin 1230.00 H Vitamin B12 863.0 Folate 11.5 TSH (Reflex) 1.440 Blood Type A Positive Antibody Screen Negative Crossmatch See Detail Quality VTE Prophylaxis VTE prophylaxis: mechanical ordered
[2025-04-30 21:33] VITALS: BP 109/58; PULSE 73; RESP 16; TEMP 36.9; O2SAT 98
[2025-04-30] MEDS: CYCLOBENZAPRINE HCL 10 MG TABLET FEED TUBE (21:41)
[2025-05-01] VITALS (7 sets, daily range): BP systolic 99–117; BP diastolic 55–65; PULSE 63–79; RESP 16–19; TEMP 36.8–37.4; O2SAT 95–100
[2025-05-01] MEDS: CENTRAL LINE FLUSH 10 ML IV PUSH ×3 (06:39→21:31)
[2025-05-01] MEDS: PANTOPRAZOLE SODIUM IV 40 MG VIAL IV PUSH ×2 (09:00→17:26)
[2025-05-01] MEDS: HYDROcodone/acetaminophen (*CRX) 10-325 MG TABLET 1 TAB FEED TUBE ×2 (09:05→21:29)
[2025-05-01] MEDS: CYCLOBENZAPRINE HCL 10 MG TABLET FEED TUBE ×2 (09:05→21:30)
--- NOTE | 2025-05-01 09:36 | PCNFU ---
Nutrition Follow-Up Complete: Severe Protein Calorie Malnutrition as related to inadequate protein energy intake with increased protein energy needs in setting of chronic disease (cancer) as evidenced by significant weight loss of 12 ibs in > 2 months; moderate subcutaneous fat loss (orbital fat pads) and muscle wasting (temporalis). Goal:Meet estimated nutritional needs. Pt current nutrition is Home tube feeds: Fibersource HN TID . Nutrition recommendation: Increase tube feedings to 5x to better meet estimated needs Last recorded weight is 72 kg. Bowel Motility: +BM 04/30 Labs Reviewed: Hgb:7.2, HCT:22.7, Alb:2.8, Glu:130 Meds Noted: protonix, miralax Skin: WNL Additional Notes: Pt is using home tube feeds - Fibersource HN TID, to increase to QID to provide 1200kcals, 54g protein, 808ml free water. Recommend to better meet estimated needs with 5x/day (1500kcals, 67g protein, 1038ml free water). Will monitor weight, labs, skin, diet orders, meds every Wednesday and Wednesday.
--- NOTE | 2025-05-01 10:07 | P.CDI_ITS ---
CDI Query Clarification Request Please clarify the status of the patient's anemia, if known. Anemia has been documented, please specify type of anemia if known: * Acute blood loss anemia * Chronic blood loss anemia * Anemia of chronic disease (CKD,neoplasm, other) * Aplastic anemia * Dilutional anemia * Iron Deficiency anemia * Pernicious anemia * Nutritional anemia (e.g., scorbutic anemia) * Other anemia * Unknown/unable to determine GI documented: Assessment and plan (1) GI bleed: Qualifiers: GI bleed type/associated pathology: unspecified gastrointestinal hemorrhage type Qualified Code(s): K92.2 - Gastrointestinal hemorrhage, unspecified Code(s): K92.2 - Gastrointestinal hemorrhage, unspecified Status: Acute (2) Esophageal cancer, stage IV: Code(s): C15.9 - Malignant neoplasm of esophagus, unspecified Status: Acute (3) 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: Code(s): C79.9 - Secondary malignant neoplasm of unspecified site; C15.9 - Malignant neoplasm of esophagus, unspecified Status: Acute (4) Gastrojejunal tube present: Code(s): Z93.1 - Gastrostomy status Status: Acute (5) Anemia: Qualifiers: Anemia type: unspecified type Qualified Code(s): D64.9 - Anemia, unspecified Code(s): D64.9 - Anemia, unspecified Status: Acute Hospitalist documented: Assessment and Plan (1) Anemia: Qualifiers: Anemia type: unspecified type Qualified Code(s): D64.9 - Anemia, unspecified Code(s): D64.9 - Anemia, unspecified Status: Acute Assessment and Plan: Patient here with recurrent anemia. Has recently become an issue within the past month for which he has received 5 units of PRBC (x1 -> x2 -> x2, most recent on 04/25) and 2 iron transfusions back in [place] where he primarily receives treatment. Currently here due to traveling for the holidays with plans to return to [place] on 05/14. PMH significant for stage IV esophageal cancer with metastases. Oncologist that is currently treating him and [place] is concern for an upper GI bleed, however he has not been able to undergo an EGD as he has been traveling recently to see his family members and to [place] to received 3 vaccines that are unavailable in the [place] Oncologist recommended weekly hemoglobin checks while he is traveling. Per , hemoglobin was 6.9 yesterday, 7.8 on 04/20, and 6.3 upon admission here on 04/29. Patient is to receive 2 units of PRBC. Noted to be initially soft at 92/51, currently stable at 118/64. - 2 units PRBC on 04/29, repeat H&H 1 hour post 2nd transfusion - recheck iron, TIBC, ferritin to reassess if patient needs additional iron transfusions - transfuse if <7 - trend H&H - GI consulted, suspect patient will need EGD during admission. See below. EGD tommrw. NPO at night night ok to resume home tube feeds for right now. (2) GI bleed: Qualifiers: GI bleed type/associated pathology: unspecified gastrointestinal hemorrhage type Qualified Code(s): K92.2 - Gastrointestinal hemorrhage, unspecified Code(s): K92.2 - Gastrointestinal hemorrhage, unspecified Status: Acute Assessment and Plan: See HPI above. History of stage IV esophageal cancer. Oncologist that is treating him back in [place] suspected upper GI bleed, however he has not been able to undergo an EGD due to travel. Has received 5 units of PRBC and 2 iron transfusions for the recurrent anemia over the past month. Reporting dark tarry stools for the past 3 weeks. Denies bright red blood per rectum. - pantoprazole IV b.i.d. - GI consulted, suspect patient will require EGD during this admission - NPO - monitor H&H and BP (3) Esophageal cancer, stage IV: Code(s): C15.9 - Malignant neoplasm of esophagus, unspecified Status: Acute Assessment and Plan: Currently follows with Dr. Arroyo at [facility] oncology in [facility]. No current definitive plan in place for further treatment, has previously underwent chemotherapy but no radiation. Not currently receiving chemotherapy. Did recently travel to [place] for 3 vaccinations are not currently available in the [place] Suspect cancer currently complicated by upper GI bleed. 2 units PRBC 04/29 Hgb: 6.3, 7.4, 7.2 <Sona Moss RN - Last Filed: 05/01/25 10:09> Provider Comments unknown at this point as pt is undergoing testing still <Sunni Packer, [employer] APPLICATION SUPERVISOR - Last Filed: 05/01/25 14:05>
[2025-05-01] MEDS: LACTATED RINGERS 1,000 ML 150 ML IV CONT ×2 (13:09→14:17)
--- NOTE | 2025-05-01 13:52 | P.PNAN_ITS ---
Anes - Initial Pre Proc Eval Procedure: Operation Date: 05/01/25 15:00 Proposed Procedures p Esophagogastroduodenoscopy - Marko Olea MD Date/Time: 05/01/25 13:52 Surgeon: Shamar Mcallister MD Pre Op Diagnosis: anemia Patient Data Age: 70 Gender: M Height: 1.7 m Weight: 72 kg Last Vital Signs Temp 98.3 F 05/01/25 13:07 Pulse 63 05/01/25 13:07 Resp 17 05/01/25 13:07 BP 103/55 L 05/01/25 13:07 Pulse Ox 98 05/01/25 13:07 O2 Del Method Room Air 05/01/25 13:07 Allergies Allergy/AdvReac Type Severity Reaction Status Date / Time No Known Allergies Allergy Verified 05/01/25 13:01 Home Medications ?Medication ?Instructions ?Recorded ?Confirmed ?Type cyclobenzaprine 5 mg tablet 10 mg feeding tube Q8H PRN muscle 04/29/25 04/29/25 History spasm hydrocodone 10 mg-acetaminophen 1 tablet feeding tube Q6H PRN pain 04/29/25 04/29/25 History 325 mg tablet Laboratory Tests 04/30/25 05/01/25 05/01/25 17:59 00:15 04:32 POC Capillary Glucose 104 mg/dl 123 H mg/dl 101 mg/dl (65-105) (65-105) (65-105) 05/01/25 11:33 POC Capillary Glucose 94 mg/dl (65-105) Patient hx anesthesia problems: none Family hx anesthesia problems: none Results Review: All pre-operative results and documents have been reviewed as part of the pre- operative evaluation. [facility] Past Medical History Medical History Gastrojejunal tube present Esophageal cancer, stage IV Iron deficiency anemia Surgical History Surgical History History of gastrostomy tube placement Social History Social History Smoking status: Never smoker Alcohol intake: former Substance use type: does not use Lack of Transportation: No Lack of Food: Never True Current Housing: I Have Housing Concerned About Future Housing: No Difficulty Paying Gas/Electric Bills: No Difficulty Paying for Meds: No Currently Unemployed: No Education: Trade/Vocational Certificate Difficulty w/ Childcare or Family Care: No Spiritual care concerns: No Anes - Eval Final PreProcedure Day of Procedure 05/01/25 13:52 Patient weight: normal Lungs: normal air movement Airway: Mallampati scale class II Neurological: alert and oriented Last oral intake: >/= 8 hours ASA classification: III Emergent: no Anesthetic plan: proceed Anesthesia type and monitoring: general GIVS and standard monitoring Results Review: All pre-operative results and documents have been reviewed as part of the pre- operative evaluation. Esophageal ca stage 4 w anemia, now for EGD. Informed Consent: The patient's anesthetic plan and its attendant risks and benefits were discussed with the patient/family/POA. Questions were solicited and answers provided to the satisfaction of the patient/family/POA.
--- NOTE | 2025-05-01 13:56 | P.PNAN_ITS ---
Anes - Initial Pre Proc Eval Procedure: Operation Date: 05/01/25 15:00 Proposed Procedures p Esophagogastroduodenoscopy - Marko Olea MD Date/Time: 05/01/25 13:56 Surgeon: Shamar Mcallister MD Pre Op Diagnosis: anemia Patient Data Age: 70 Gender: M Height: 1.7 m Weight: 72 kg Last Vital Signs Temp 98.3 F 05/01/25 13:07 Pulse 63 05/01/25 13:07 Resp 17 05/01/25 13:07 BP 103/55 L 05/01/25 13:07 Pulse Ox 98 05/01/25 13:07 O2 Del Method Room Air 05/01/25 13:07 Allergies Allergy/AdvReac Type Severity Reaction Status Date / Time No Known Allergies Allergy Verified 05/01/25 13:01 Home Medications ?Medication ?Instructions ?Recorded ?Confirmed ?Type cyclobenzaprine 5 mg tablet 10 mg feeding tube Q8H PRN muscle 04/29/25 04/29/25 History spasm hydrocodone 10 mg-acetaminophen 1 tablet feeding tube Q6H PRN pain 04/29/25 04/29/25 History 325 mg tablet Laboratory Tests 04/30/25 05/01/25 05/01/25 17:59 00:15 04:32 POC Capillary Glucose 104 mg/dl 123 H mg/dl 101 mg/dl (65-105) (65-105) (65-105) 05/01/25 11:33 POC Capillary Glucose 94 mg/dl (65-105) Patient hx anesthesia problems: none Family hx anesthesia problems: none Results Review: All pre-operative results and documents have been reviewed as part of the pre- operative evaluation. [facility] Past Medical History Medical History Gastrojejunal tube present Esophageal cancer, stage IV Iron deficiency anemia Surgical History Surgical History History of gastrostomy tube placement Social History Social History Smoking status: Never smoker Alcohol intake: former Substance use type: does not use Lack of Transportation: No Lack of Food: Never True Current Housing: I Have Housing Concerned About Future Housing: No Difficulty Paying Gas/Electric Bills: No Difficulty Paying for Meds: No Currently Unemployed: No Education: Trade/Vocational Certificate Difficulty w/ Childcare or Family Care: No Spiritual care concerns: No Anes - Eval Final PreProcedure Day of Procedure 05/01/25 13:56 Patient weight: thin Lungs: normal air movement Airway: Mallampati scale class II and special considerations (Edentulous. ) Neurological: alert and oriented Last oral intake: >/= 8 hours ASA classification: III Emergent: no Anesthetic plan: proceed Anesthesia type and monitoring: general GIVS and standard monitoring Results Review: All pre-operative results and documents have been reviewed as part of the pre- operative evaluation. Esophageal ca, stage 4, now w anemia for EGD. Informed Consent: The patient's anesthetic plan and its attendant risks and benefits were discussed with the patient/family/POA. Questions were solicited and answers provided to the satisfaction of the patient/family/POA.
[2025-05-01] MEDS: BENZOCAINE (*SP) 60 ML SPRAY CAN (HURRICAINE) 1 SPRAY MUCOUS MEM (14:02)
--- NOTE | 2025-05-01 14:07 | P.PNIM_ITS ---
Assessment and Plan Assessment and Plan (1) Anemia: Qualifiers: Anemia type: unspecified type Qualified Code(s): D64.9 - Anemia, unspecified Code(s): D64.9 - Anemia, unspecified Status: Acute Assessment and Plan: Patient here with recurrent anemia. Has recently become an issue within the past month for which he has received 5 units of PRBC (x1 -> x2 -> x2, most recent on 04/25) and 2 iron transfusions back in [place] where he primarily receives treatment. Currently here due to traveling for the holidays with plans to return to [place] on 05/14. PMH significant for stage IV esophageal cancer with metastases. Oncologist that is currently treating him and [place] is concern for an upper GI bleed, however he has not been able to undergo an EGD as he has been traveling recently to see his family members and to [place] to received 3 vaccines that are unavailable in the [place] Oncologist recommended weekly hemoglobin checks while he is traveling. Per , hemoglobin was 6.9 yesterday, 7.8 on 04/20, and 6.3 upon admission here on 04/29. Patient is to receive 2 units of PRBC. Noted to be initially soft at 92/51, currently stable at 118/64. - 2 units PRBC on 04/29, repeat H&H 1 hour post 2nd transfusion - recheck iron, TIBC, ferritin to reassess if patient needs additional iron transfusions - transfuse if <7 - trend H&H - GI consulted, suspect patient will need EGD during admission. See below. EGD tommrw. NPO at night night ok to resume home tube feeds for right now. - will recheck hg now and add daily to monitor hg (2) GI bleed: Qualifiers: GI bleed type/associated pathology: unspecified gastrointestinal hemorrhage type Qualified Code(s): K92.2 - Gastrointestinal hemorrhage, unspecified Code(s): K92.2 - Gastrointestinal hemorrhage, unspecified Status: Acute Assessment and Plan: See HPI above. History of stage IV esophageal cancer. Oncologist that is treating him back in [place] suspected upper GI bleed, however he has not been able to undergo an EGD due to travel. Has received 5 units of PRBC and 2 iron transfusions for the recurrent anemia over the past month. Reporting dark tarry stools for the past 3 weeks. Denies bright red blood per rectum. - pantoprazole IV b.i.d. - GI consulted, suspect patient will require EGD during this admission - NPO - monitor H&H and BP (3) Esophageal cancer, stage IV: Code(s): C15.9 - Malignant neoplasm of esophagus, unspecified Status: Acute Assessment and Plan: Currently follows with Dr. Arroyo at [facility] oncology in [facility]. No current definitive plan in place for further treatment, has previously underwent chemotherapy but no radiation. Not currently receiving chemotherapy. Did recently travel to [place] for 3 vaccinations are not currently available in the [place] Suspect cancer currently complicated by upper GI bleed. Imaging * CTA of the abdomen/pelvis 1. Limited evaluation due to lack of clinical and medical history and prior imaging studies for comparison. 2. There is no extravasation of arterial phase contrast within the GI tract. Delayed postcontrast phase was not obtained. 3. Irregular multiple arterial phase enhancing liver masses suggestive of metastatic disease to the liver or multifocal primary malignancy. 4. G-tube in place within the gastric antrum. Significant wall thickening of the gastric fundus and distal esophagus noted in the upper abdomen. Possible neoplasm of the esophagus and proximal stomach. Please correlate with clinical history. 5. Bilateral pleural effusion, [id number] on the right and minimal on the left. -------- following [facility] oncologist at [place] in [place] (4) Gastrojejunal tube present: Code(s): Z93.1 - Gastrostomy status Status: Acute Assessment and Plan: G-tube present due to esophageal cancer. Currently receives [employer] HN 1.2 seth/mL 8.45 oz 3-4 times daily as push through tube and flushes with 8 oz of water x4 per day. - wind energy systems installer consulted for tube feedings - hypoglycemia protocol - Accu-Cheks q.6 hours Plan Diet: NPO, tube feedings GI Prophylaxis: PPI IV BID DVT Prophylaxis: SCDs IV fluids: NS 125 mL/hour Lines/Tubes: pIV, G-tube Code Status: Full code Medical Record Review I have reviewed the following patient records and this information was taken into consideration when formulating the assessment and plan.: previous labs and previous clinic visits Time Spent With Patient Time with patient: Greater than 35 minutes Subjective Date/time seen: 05/01/25 14:07 Interval history: 70 y/o M with PMH of metastatic stage 4 esophageal cancer presents here with ab normal hemoglobin. The patient presents here from a family's residence on 04/29 for further evaluation of a low hemoglobin. HPI obtained through patient report and the patient's . He is currently here to visit family for the holidays, currently lives in [place]. He has a history significant for stage IV esophageal cancer for which he follows with an oncologist, Dr. Arroyo out of [facility] oncology in [facility]. He has previously received chemotherapy for his cancer, however he is not currently receiving and has never previously underwent radiation. He is NPO at baseline and has a feeding tube in place. Per , they have been traveling a lot recently to see family and recently went to [place] to receive 3 vaccines as treatment for his cancer at [facility] [place] (dendritic cell vaccine, LK? killer cell vaccine, and one other) that are not available in the . Oncologist aware that the patient and his went for these. However recently he has been having issues with his hemoglobin. reports approximately 1 month ago he was admitted due to anemia and required 1 unit initially. Then approximately 2 weeks later he again required a transfusion due to anemia and at that time received 2 units. Then prior to traveling here to visit family he received 2 more units on 04/25. For her patient's , his hemoglobin was 6.9 yesterday and repeat today was 6.3. Per his oncologist's recommendations since they have been traveling she recommended he have his hemoglobin checked weekly. When he gets back from this current trip (traveling back on 05/14) they plan to do an upper endoscopy as they believe he likely has an upper GI bleed causing his current/recurrent anemia. He has been having dark tarry stools for the past 3 weeks, denies bright red blood per rectum. He has additionally reporting some intermittent constipation with last bowel movement 4-5 days ago, however he reports at that time he had a decent amount out. Takes MiraLax daily. He has additionally received 2 iron transfusions 1 month ago, not on daily iron supplement. There is no current definitive plan in place in regards his cancer (continue chemo?, radiation?, ect) beyond obtaining an EGD when he gets back home. The patient currently reports fatigue and generalized weakness. No shortness of breath or chest pain. Initial VS at presentation: 98.6? F, HR 73, RR 18, 92/51, and 100% on RA. ED workup showed: No leukocytosis, hemoglobin 6.3/MCV 78.4/MCHC 31, INR 1.3, sodium 131, creatinine 0.94 and GFR >60, albumin 2.8. No previous lab work available for comparison. CTA of the abdomen/pelvis showed no extravasation of arterial phase contrast within the GI tract, irregular multiple arterial phase enhancing liver masses suggestive of metastatic disease to the liver of multifocal primary malignancy, G-tube in place within the gastric antrum, significant wall thickening of the gastric fundus and distal esophagus noted in the upper abdomen possible neoplasm the esophagus and proximal stomach, bilateral pleural effusion that is small to moderate on the right and minimal on the left. pt is seen and examined. Will resume pt home tube feedings. GI following. EGD done today. Review of Systems Review of Systems: All systems reviewed & are unremarkable except as noted in HPI and below Exam Const: General: comfortable and no acute distress Other: , male, nontoxic appearance, modestly ill-appearing/fatigued HENMT: Face/Nose/Sinus: Normal nares present Mouth: Yes moist mucous membranes Eyes: General: appearance normal, both eyes and all related structures Scle ra: sclerae normal Pupils: Equal, round and reactive pupils present EOM: EOMs intact bilaterally Resp: Effort & Inspection: normal respiratory effort Auscultation: clear to auscultation bilaterally Cardio: Rate: regular rate Rhythm: regular rhythm Other: S1-S2 present without murmur, rub, ectopy GI: Other: Abdomen soft, nondistended. G-tube present with no signs of infection. Normoactive bowel sounds in all quadrants. No tenderness on exam. Skin: General skin exam: normal color and no rashes or lesions noted Wounds: no wounds Neuro: Cranial nerves: Yes Equal, round and reactive pupils present Speech: normal speech Motor exam (neuro): 5/5 motor strength present throughout Sensory Exam: normal sensation Other: A&O x4 Extrem: General: normal to inspection Psych: Mental Status: mental status grossly normal Affect: normal affect Other: Good insight and judgment, pleasant Objective Data Vital Signs Vital Signs: Vital Signs - 24 hr 04/30/25 20:00 04/30/25 21:33 05/01/25 06:00 Temperature 98.5 F 99.4 F Pulse Rate 73 79 Respiratory Rate 16 16 Blood Pressure 109/58 L 109/65 Pulse Oximetry 98 96 Oxygen Delivery Room Air 05/01/25 08:00 05/01/25 13:07 Temperature 98.3 F Pulse Rate 63 Respiratory Rate 17 Blood Pressure 103/55 L Pulse Oximetry 98 Oxygen Delivery Room Air Room Air Intake/Output Intake/Output: Intake & Output 04/28/25 04/29/25 04/30/25 05/01/25 23:59 23:59 23:59 23:59 Intake Total 950 297 Balance 950 297 Meds/Results Medications: Active Medications Generic Name Dose Route Start Last Admin Trade Name Freq PRN Reason Stop Dose Admin Acetaminophen 650 mg 04/29/25 16:48 Acetaminophen Elixir 325 Mg/10.15 Ml Udc FEED TUBE Q4H PRN Mild Pain (1-3) or Fever Hydrocodone Bitart/Acetaminophen 1 tab 04/29/25 22:59 05/01/25 09:05 Hydrocodone/Acetaminophen (*Crx) 10-325 Mg Tablet FEED TUBE 1 tab Q6H PRN Administration PAIN RATED 7-10 Benzocaine 1 spray 05/01/25 14:02 05/01/25 14:02 Benzocaine (*Sp) 60 Ml [place] Can (Hurricaine) MUCOUS MEM 05/01/25 14:03 1 spray ONCE ONE Administration Cyclobenzaprine HCl 10 mg 04/29/25 22:59 05/01/25 09:05 Cyclobenzaprine Hcl 10 Mg Tablet FEED TUBE 10 mg Q8H PRN Administration Muscle Spasm Heparin Sodium (Beef Lung) 50 units 04/30/25 09:00 05/01/25 09:01 Heparin Flush 50 Units/5 Ml Syringe IV PUSH 50 units QAM YADI Administration Heparin Sodium (Beef Lung) 50 units 04/29/25 13:14 Heparin Flush 50 Units/5 Ml Syringe IV PUSH PRN PRN after intermittent infusion Heparin Sodium (Beef Lung) 50 units 04/29/25 13:14 Heparin Flush 50 Units/5 Ml Syringe IV PUSH PRN PRN after blood draws Heparin Sodium (Porcine) 500 units 04/29/25 13:14 Heparin Sodium Lock Flush 500 Units/5 Ml Syringe IV PUSH PRN PRN see comments below Lactated Ringer's 1,000 mls @ 150 mls/hr 05/01/25 13:05 05/01/25 13:09 Lr - Lactated Ringers Iv IV CONT 150 mls/hr .[id number] YADI Administration Morphine Sulfate 2 mg 04/29/25 16:56 Morphine Sulfate (*Crx) 4 Mg/Ml Inj IV PUSH Q4H PRN Pain Rated 4-6 Morphine Sulfate 4 mg 04/29/25 16:56 Morphine Sulfate (*Crx) 4 Mg/Ml Inj IV PUSH Q4H PRN Pain Rated 7-10 Naloxone HCl 0.1 mg 04/29/25 16:56 Naloxone Hcl 0.4 Mg/Ml Vial IV PUSH Q5MIN PRN Sedation Pantoprazole Sodium 40 mg 04/29/25 17:00 05/01/25 09:00 Pantoprazole Sodium Iv 40 Mg Vial IV PUSH 40 mg BID YADI Administration Polyethylene Glycol 17 gm 04/30/25 09:00 05/01/25 08:58 Polyethylene Glycol 3350 17 Gm Powd.Pack FEED TUBE Not Given QAM YADI Sodium Chloride 10 ml 04/29/25 14:00 05/01/25 06:39 Central Line Flush IV PUSH 10 ml Q8HR YADI Administration Radiology Results: ITS Impressions Abdomen/Pelvis CTA 04/29/25 14:09 IMPRESSION: 1. Limited evaluation due to lack of clinical and medical history and prior imaging studies for comparison. 2. There is no extravasation of arterial phase contrast within the GI tract. Delayed postcontrast phase was not obtained. 3. Irregular multiple arterial phase enhancing liver masses suggestive of metastatic disease to the liver or multifocal primary malignancy. 4. G-tube in place within the gastric antrum. Significant wall thickening of the gastric fundus and distal esophagus noted in the upper abdomen. Possible neoplasm of the esophagus and proximal stomach. Please correlate with clinical history. 5. Bilateral pleural effusion, [id number] on the right and minimal on the left. Labs Labs: Laboratory Results - last 24 hr 04/30/25 05/01/25 05/01/25 17:59 00:15 04:32 POC Capillary Glucose 104 123 H 101 05/01/25 11:33 POC Capillary Glucose 94 Quality VTE Prophylaxis VTE prophylaxis: mechanical ordered
[2025-05-01 16:37] LABS: Hematocrit 24.3 % (42.0-52.0); Hemoglobin 7.6 g/dL (14.0-18.0); Mean Corpuscular HGB Conc 31.3 g/dl (32-36); Mean Corpuscular Hemoglobin 24.4 pg (26-34); Mean Corpuscular Volume 77.9 fl (80-100); Platelet Count Result 373 k/mm3 (150-375); Red Blood Count 3.12 M/mm3 (4.6-6.20); White Blood Count 7.8 K/mm3 (4.5-10.0)
[2025-05-02] MEDS: CENTRAL LINE FLUSH 10 ML IV PUSH ×3 (06:03→21:14)
[2025-05-02 07:03] VITALS: BP 101/56; PULSE 77; RESP 16; TEMP 36.6; O2SAT 95
[2025-05-02] MEDS: CYCLOBENZAPRINE HCL 10 MG TABLET FEED TUBE ×2 (08:41→18:43)
[2025-05-02] MEDS: HYDROcodone/acetaminophen (*CRX) 10-325 MG TABLET 1 TAB FEED TUBE ×2 (08:41→18:42)
[2025-05-02] MEDS: PANTOPRAZOLE SODIUM IV 40 MG VIAL IV PUSH ×2 (08:44→17:51)
[2025-05-02 10:44] VITALS: O2SAT 97
[2025-05-02 12:53] LABS: Hematocrit 24.9 % (42.0-52.0); Hemoglobin 7.8 g/dL (14.0-18.0); Mean Corpuscular HGB Conc 31.3 g/dl (32-36); Mean Corpuscular Hemoglobin 24.6 pg (26-34); Mean Corpuscular Volume 78.5 fl (80-100); Platelet Count Result 413 k/mm3 (150-375); Red Blood Count 3.17 M/mm3 (4.6-6.20); White Blood Count 8.3 K/mm3 (4.5-10.0)
[2025-05-02 13:04] LABS: Anion Gap 5 mmol/L (4-12); Blood Urea Nitrogen 14 mg/dL (9-20); Calcium 8.9 mg/dL (8.4-10.2); Carbon Dioxide 29 mmol/L (22-30); Chloride 98 mmol/L (98-107); Estimated CRCL calculation 65 ml/min; Estimated Glomerular Filt Rate > 60; Glucose 74 mg/dL (65-110); Potassium 4.0 mmol/L (3.4-5.0); Sodium 132 mmol/L (137-145)
[2025-05-02 14:00] VITALS: BP 112/63; PULSE 82; RESP 16; TEMP 36.8; O2SAT 100
--- NOTE | 2025-05-02 14:04 | PM.IMPN2 ---
Assessment and Plan Assessment and Plan (1) Anemia: Qualifiers: Anemia type: unspecified type Qualified Code(s): D64.9 - Anemia, unspecified Code(s): D64.9 - Anemia, unspecified Status: Acute Assessment and Plan: Patient here with recurrent anemia. Has recently become an issue within the past month for which he has received 5 units of PRBC (x1 -> x2 -> x2, most recent on 04/25) and 2 iron transfusions back in [place] where he primarily receives treatment. Currently here due to traveling for the holidays with plans to return to [place] on 05/14. PMH significant for stage IV esophageal cancer with metastases. Oncologist that is currently treating him and [place] is concern for an upper GI bleed, however he has not been able to undergo an EGD as he has been traveling recently to see his family members and to [place] to received 3 vaccines that are unavailable in the [place] Oncologist recommended weekly hemoglobin checks while he is traveling. Per , hemoglobin was 6.9 yesterday, 7.8 on 04/20, and 6.3 upon admission here on 04/29. Patient is to receive 2 units of PRBC. Noted to be initially soft at 92/51, currently stable at 118/64. - 2 units PRBC on 04/29, repeat H&H 1 hour post 2nd transfusion - recheck iron, TIBC, ferritin to reassess if patient needs additional iron transfusions - transfuse if <7 - trend H&H - GI consulted, suspect patient will need EGD during admission. See below. EGD performed 05/01 yielding no active signs of bleeding. Per GI: anemia from large esophageal CA Hgb holding stable today at 7.8. Iron: 20 Iron %: 16 TIBC: 126 - Will give x2 venofer 500mg doses, first today, second tomorrow AM. Per , pt has gotten an infusion of iron before, but she is unsure when his last one was - Hopeful discharge tomorrow after iron infusion and if hgb holds stable (2) GI bleed: Qualifiers: GI bleed type/associated pathology: unspecified gastrointestinal hemorrhage type Qualified Code(s): K92.2 - Gastrointestinal hemorrhage, unspecified Code(s): K92.2 - Gastrointestinal hemorrhage, unspecified Status: Acute Assessment and Plan: See HPI above. History of stage IV esophageal cancer. Oncologist that is treating him back in [place] suspected upper GI bleed, however he has not been able to undergo an EGD due to travel. Has received 5 units of PRBC and 2 iron transfusions for the recurrent anemia over the past month. Reporting dark tarry stools for the past 3 weeks. Denies bright red blood per rectum. - pantoprazole IV b.i.d. - GI consulted, suspect patient will require EGD during this admission - NPO - monitor H&H and BP - See above (3) Esophageal cancer, stage IV: Code(s): C15.9 - Malignant neoplasm of esophagus, unspecified Status: Acute Assessment and Plan: Currently follows with Dr. Arroyo at [facility] oncology in [facility]. No current definitive plan in place for further treatment, has previously underwent chemotherapy but no radiation. Not currently receiving chemotherapy. Did recently travel to [place] for 3 vaccinations are not currently available in the [place] Suspect cancer currently complicated by upper GI bleed. Imaging CTA of the abdomen/pelvis 1. Limited evaluation due to lack of clinical and medical history and prior imaging studies for comparison. 2. There is no extravasation of arterial phase contrast within the GI tract. Delayed postcontrast phase was not obtained. 3. Irregular multiple arterial phase enhancing liver masses suggestive of metastatic disease to the liver or multifocal primary malignancy. 4. G-tube in place within the gastric antrum. Significant wall thickening of the gastric fundus and distal esophagus noted in the upper abdomen. Possible neoplasm of the esophagus and proximal stomach. Please correlate with clinical history. 5. Bilateral pleural effusion, [id number] on the right and minimal on the left. -------- following with oncologist at [facility] in [place] (4) Gastrojejunal tube present: Code(s): Z93.1 - Gastrostomy status Status: Acute Assessment and Plan: G-tube present due to esophageal cancer. Currently receives FiberSource HN 1.2 seth/mL 8.45 oz 3-4 times daily as push through tube and flushes with 8 oz of water x4 per day. - abrasive sawyer consulted for tube feedings - hypoglycemia protocol - Accu-Cheks q.6 hours Plan Hopeful discharge tomorrow after iron infusion and if hgb holds stable Medical Record Review I have reviewed the following patient records and this information was taken into consideration when formulating the assessment and plan.: previous labs and previous clinic visits Time Spent With Patient Time with patient: Greater than 35 minutes Subjective Date/time seen: 05/02/25 1201 Interval history: Pt lying in bed with at the bedside upon my arrival. Pt denies any issues and reports that he can usually tell when his hgb is low. Pt to not take any medication per os. G tube in place for tube feeds. Pt takes pain meds at baseline for metastatic CA. Review of Systems Review of Systems: All systems reviewed & are unremarkable except as noted in HPI and below Exam Const: General: comfortable and no acute distress Other: , male, nontoxic appearance, moderately ill-appearing/fatigued HENMT: Face/Nose/Sinus: Normal nares present Mouth: Yes moist mucous membranes Eyes: General: appearance normal, both eyes and all related structures Sclera: sclerae normal Neck: Neck: supple Resp: Effort & Inspection: normal respiratory effort Auscultation: clear to auscultation bilaterally Cardio: Rate: regular rate Rhythm: regular rhythm Other: S1-S2 present without murmur, rub, ectopy GI: Other: Abdomen soft, nondistended. G-tube present with no signs of infection. Normoactive bowel sounds in all quadrants. No tenderness on exam. Skin: General skin exam: normal color and no rashes or lesions noted Wounds: no wounds Neuro: Speech: normal speech Motor exam (neuro): Normal motor muscle tone present throughout Other: A&O x4 Extrem: General: normal to inspection Psych: Mental Status: mental status grossly normal Affect: normal affect Other: Good insight and judgment, pleasant Objective Data Vital Signs Vital Signs: Vital Signs - 24 hr 05/01/25 14:13 05/01/25 14:23 05/01/25 14:33 Temperature Pulse Rate 65 67 64 Respiratory Rate 19 16 19 Blood Pressure 99/56 L 102/56 L 102/55 L Pulse Oximetry 100 100 100 Oxygen Delivery Nasal Cannula Nasal Cannula Room Air Oxygen Flow Rate 4 2 05/01/25 20:00 05/01/25 20:32 05/02/25 07:03 Temperature 98.3 F 97.8 F Pulse Rate 75 77 Respiratory Rate 16 16 Blood Pressure 117/65 101/56 L Pulse Oximetry 95 95 Oxygen Delivery Room Air Oxygen Flow Rate 05/02/25 08:00 05/02/25 10:44 Temperature Pulse Rate Respiratory Rate Blood Pressure Pulse Oximetry 97 Oxygen Delivery Room Air Room Air Oxygen Flow Rate Intake/Output Intake/Output: Intake & Output 04/29/25 04/30/25 05/01/25 05/02/25 23:59 23:59 23:59 23:59 Intake Total 950 297 742.5 0 Balance 950 297 742.5 0 Meds/Results Medications: Active Medications Generic Name Dose Route Start Last Admin Trade Name Freq PRN Reason Stop Dose Admin Acetaminophen 650 mg 04/29/25 16:48 Acetaminophen Elixir 325 Mg/10.15 Ml Udc FEED TUBE Q4H PRN Mild Pain (1-3) or Fever Hydrocodone Bitart/Acetaminophen 1 tab 04/29/25 22:59 05/02/25 08:41 Hydrocodone/Acetaminophen (*Crx) 10-325 Mg Tablet FEED TUBE 1 tab Q6H PRN Administration PAIN RATED 7-10 Cyclobenzaprine HCl 10 mg 04/29/25 22:59 05/02/25 08:41 Cyclobenzaprine Hcl 10 Mg Tablet FEED TUBE 10 mg Q8H PRN Administration Muscle Spasm Heparin Sodium (Beef Lung) 50 units 04/30/25 09:00 05/02/25 08:48 Heparin Flush 50 Units/5 Ml Syringe IV PUSH 50 units QAM YADI Administration Heparin Sodium (Beef Lung) 50 units 04/29/25 13:14 Heparin Flush 50 Units/5 Ml Syringe IV PUSH PRN PRN after intermittent infusion Heparin Sodium (Beef Lung) 50 units 04/29/25 13:14 Heparin Flush 50 Units/5 Ml Syringe IV PUSH PRN PRN after blood draws Heparin Sodium (Porcine) 500 units 04/29/25 13:14 Heparin Sodium Lock Flush 500 Units/5 Ml Syringe IV PUSH PRN PRN see comments below Iron Sucrose 400 mg/ Iron 275 mls @ 78.571 mls/hr 05/02/25 13:00 Sucrose 100 mg/ Sodium IVPB 05/02/25 16:29 Chloride ONCE ONE Iron Sucrose 400 mg/ Iron 275 mls @ 78.571 mls/hr 05/03/25 08:00 Sucrose 100 mg/ Sodium IVPB 05/03/25 11:29 Chloride ONCE ONE Morphine Sulfate 2 mg 04/29/25 16:56 Morphine Sulfate (*Crx) 4 Mg/Ml Inj IV PUSH Q4H PRN Pain Rated 4-6 Morphine Sulfate 4 mg 04/29/25 16:56 Morphine Sulfate (*Crx) 4 Mg/Ml Inj IV PUSH Q4H PRN Pain Rated 7-10 Naloxone HCl 0.1 mg 04/29/25 16:56 Naloxone Hcl 0.4 Mg/Ml Vial IV PUSH Q5MIN PRN Sedation Pantoprazole Sodium 40 mg 04/29/25 17:00 05/02/25 08:44 Pantoprazole Sodium Iv 40 Mg Vial IV PUSH 40 mg BID YADI Administration Polyethylene Glycol 17 gm 04/30/25 09:00 05/02/25 08:44 Polyethylene Glycol 3350 17 Gm Powd.Pack FEED TUBE 17 gm QAM YADI Administration Sodium Chloride 10 ml 04/29/25 14:00 05/02/25 06:03 Central Line Flush IV PUSH 10 ml Q8HR YADI Administration Radiology Results: ITS Impressions Abdomen/Pelvis CTA 04/29/25 14:09 IMPRESSION: 1. Limited evaluation due to lack of clinical and medical history and prior imaging studies for comparison. 2. There is no extravasation of arterial phase contrast within the GI tract. Delayed postcontrast phase was not obtained. 3. Irregular multiple arterial phase enhancing liver masses suggestive of metastatic disease to the liver or multifocal primary malignancy. 4. G-tube in place within the gastric antrum. Significant wall thickening of the gastric fundus and distal esophagus noted in the upper abdomen. Possible neoplasm of the esophagus and proximal stomach. Please correlate with clinical history. 5. Bilateral pleural effusion, [id number] on the right and minimal on the left. Labs Labs: Laboratory Results - last 24 hr 05/01/25 05/01/25 05/02/25 16:24 18:27 00:45 WBC 7.8 RBC 3.12 L Hgb 7.6 L Hct 24.3 L MCV 77.9 L MCH 24.4 L MCHC 31.3 L RDW 19.6 H Plt Count 373 MPV 9.5 Sodium Potassium Chloride Carbon Dioxide Anion Gap BUN Creatinine Estim Creat Clear Calc Estimated GFR Glucose POC Capillary Glucose 80 103 Calcium 05/02/25 05/02/25 05/02/25 06:57 11:23 12:37 WBC 8.3 RBC 3.17 L Hgb 7.8 L Hct 24.9 L MCV 78.5 L MCH 24.6 L MCHC 31.3 L RDW 19.6 H Plt Count 413 H MPV 9.5 Sodium 132 L Potassium 4.0 Chloride 98 Carbon Dioxide 29 Anion Gap 5 BUN 14 Creatinine 0.86 Estim Creat Clear Calc 65 Estimated GFR > 60 Glucose 74 POC Capillary Glucose 77 77 Calcium 8.9 Quality VTE Prophylaxis VTE prophylaxis: mechanical ordered
[2025-05-02] MEDS: IRON SUCROSE COMPLEX 400 MG, IRON SUCROSE COMPLEX 100 MG in SODIUM CHLORIDE 0.9% IV 250 ML 78.57 MG IVPB (14:46)
[2025-05-02 20:48] VITALS: BP 107/58; PULSE 84; RESP 18; TEMP 36.6; O2SAT 98
[2025-05-03] MEDS: HYDROcodone/acetaminophen (*CRX) 10-325 MG TABLET 1 TAB FEED TUBE ×2 (03:06→09:30)
[2025-05-03] MEDS: CYCLOBENZAPRINE HCL 10 MG TABLET FEED TUBE ×2 (03:07→09:30)
[2025-05-03] MEDS: CENTRAL LINE FLUSH 10 ML IV PUSH (05:43)
[2025-05-03 05:57] VITALS: BP 103/60; PULSE 80; RESP 16; TEMP 36.3; O2SAT 94
[2025-05-03 06:02] LABS: Hematocrit 24.5 % (42.0-52.0); Hemoglobin 7.7 g/dL (14.0-18.0); Mean Corpuscular HGB Conc 31.4 g/dl (32-36); Mean Corpuscular Hemoglobin 24.8 pg (26-34); Mean Corpuscular Volume 78.8 fl (80-100); Platelet Count Result 423 k/mm3 (150-375); Red Blood Count 3.11 M/mm3 (4.6-6.20); White Blood Count 8.7 K/mm3 (4.5-10.0)
[2025-05-03 06:51] LABS: Anion Gap 0 mmol/L (4-12); Blood Urea Nitrogen 13 mg/dL (9-20); Calcium 9.2 mg/dL (8.4-10.2); Carbon Dioxide 30 mmol/L (22-30); Chloride 100 mmol/L (98-107); Estimated CRCL calculation 70 ml/min; Estimated Glomerular Filt Rate > 60; Glucose 103 mg/dL (65-110); Potassium 3.8 mmol/L (3.4-5.0); Sodium 130 mmol/L (137-145)
[2025-05-03] MEDS: PANTOPRAZOLE SODIUM IV 40 MG VIAL IV PUSH (09:13)
[2025-05-03] MEDS: IRON SUCROSE COMPLEX 400 MG, IRON SUCROSE COMPLEX 100 MG in SODIUM CHLORIDE 0.9% IV 250 ML 78.57 MG IVPB (09:34)
--- NOTE | 2025-05-03 11:08 | PM.DS ---
DS: Admitting Diagnosis Discharge Date 05/03/2025 Admitting Diagnosis Low hgb DS: Discharge Diagnosis Discharge Diagnosis (1) Anemia: Qualifiers: Anemia type: unspecified type Qualified Code(s): D64.9 - Anemia, unspecified Code(s): D64.9 - Anemia, unspecified Status: Acute Assessment and Plan: Patient here with recurrent anemia. Has recently become an issue within the past month for which he has received 5 units of PRBC (x1 -> x2 -> x2, most recent on 04/25) and 2 iron transfusions back in [place] where he primarily receives treatment. Currently here due to traveling for the holidays with plans to return to [place] on 05/14. PMH significant for stage IV esophageal cancer with metastases. Oncologist that is currently treating him and [place] is concern for an upper GI bleed, however he has not been able to undergo an EGD as he has been traveling recently to see his family members and to [place] to received 3 vaccines that are unavailable in the [place] Oncologist recommended weekly hemoglobin checks while he is traveling. Per , hemoglobin was 6.9 yesterday, 7.8 on 04/20, and 6.3 upon admission here on 04/29. Patient is to receive 2 units of PRBC. Noted to be initially soft at 92/51, currently stable at 118/64. - 2 units PRBC on 04/29, repeat H&H 1 hour post 2nd transfusion - recheck iron, TIBC, ferritin to reassess if patient needs additional iron transfusions - transfuse if <7 - trend H&H - GI consulted, suspect patient will need EGD during admission. See below. EGD performed 05/01 yielding no active signs of bleeding. Per GI: anemia from large esophageal CA Hgb holding stable today at 7.7 Iron: 20 Iron %: 16 TIBC: 126 - Will give x2 venofer 500mg doses, second dose today. Per , pt has gotten an infusion of iron before, but she is unsure when his last one was - Discharge today with oncology follow-up. (2) GI bleed: Qualifiers: GI bleed type/associated pathology: unspecified gastrointestinal hemorrhage type Qualified Code(s): K92.2 - Gastrointestinal hemorrhage, unspecified Code(s): K92.2 - Gastrointestinal hemorrhage, unspecified Status: Acute Assessment and Plan: See HPI above. History of stage IV esophageal cancer. Oncologist that is treating him back in [place] suspected upper GI bleed, however he has not been able to undergo an EGD due to travel. Has received 5 units of PRBC and 2 iron transfusions for the recurrent anemia over the past month. Reporting dark tarry stools for the past 3 weeks. Denies bright red blood per rectum. - pantoprazole IV b.i.d. - GI consulted, suspect patient will require EGD during this admission - monitor H&H and BP - See above (3) Esophageal cancer, stage IV: Code(s): C15.9 - Malignant neoplasm of esophagus, unspecified Status: Acute Assessment and Plan: Currently follows with Dr. Arroyo at [facility] oncology in [facility]. No current definitive plan in place for further treatment, has previously underwent chemotherapy but no radiation. Not currently receiving chemotherapy. Did recently travel to [place] for 3 vaccinations are not currently available in the [place] Suspect cancer currently complicated by upper GI bleed. Imaging CTA of the abdomen/pelvis 1. Limited evaluation due to lack of clinical and medical history and prior imaging studies for comparison. 2. There is no extravasation of arterial phase contrast within the GI tract. Delayed postcontrast phase was not obtained. 3. Irregular multiple arterial phase enhancing liver masses suggestive of metastatic disease to the liver or multifocal primary malignancy. 4. G-tube in place within the gastric antrum. Significant wall thickening of the gastric fundus and distal esophagus noted in the upper abdomen. Possible neoplasm of the esophagus and proximal stomach. Please correlate with clinical history. 5. Bilateral pleural effusion, [id number] on the right and minimal on the left. -------- following with oncologist at [facility] in [place] (4) Gastrojejunal tube present: Code(s): Z93.1 - Gastrostomy status Status: Acute Assessment and Plan: G-tube present due to esophageal cancer. Currently receives FiberSource HN 1.2 seth/mL 8.45 oz 3-4 times daily as push through tube and flushes with 8 oz of water x4 per day. - marketing automation specialist consulted for tube feedings - hypoglycemia protocol - Accu-Cheks q.6 hours Plan Pt to discharge home today with family. Pt to continue to trend hgb with standing order set lab work via home oncologist (In [place]). Pt to f/u with this provider when he returns home on 05/14/2025. DS: Summary Hospital Course Reason for hospitalization: Low hgb. Hospital Course: The patient is a 70-year-old male with known stage IV metastatic esophageal cancer and PEG tube dependence who was admitted on 04/29/25 for evaluation of recurrent severe anemia after outpatient labs showed hemoglobin in the 6 g/dL range while visiting family. He reported several weeks of melena and fatigue without chest pain or dyspnea. Initial evaluation demonstrated hemoglobin 6.3 g/dL with microcytic indices, mild hyponatremia, and hypoalbuminemia. CTA of the abdomen and pelvis showed no active contrast extravasation but did reveal marked wall thickening of the distal esophagus and gastric fundus consistent with known malignancy, as well as hepatic metastatic disease. He was transfused 2 units of packed red blood cells with appropriate response and started on IV proton pump inhibitor therapy. Gastroenterology was consulted and performed an EGD on 05/01/25, which showed no active bleeding; anemia was felt to be secondary to chronic blood loss from the large esophageal tumor. 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 Hemoglobin remained stable in the mid?7 g/dL range without further transfusion requirement. Tube feedings were resumed and tolerated, vital signs remained stable, and no further overt bleeding was noted. The patient was discharged home on 05/03/25 in stable condition with plans for close outpatient follow-up with his home oncologist in [place], continued monitoring of hemoglobin, and ongoing management of his advanced malignancy. Status at Discharge Overall status at discharge: patient is progressing back to baseline Time Spent with Patient Time attestation: Total time spent providing and/or coordinating discharge services: Time spent: Greater than 30 minutes Exam Const: General: comfortable and no acute distress Other: , male, nontoxic appearance, moderately ill-appearing/fatigued HENMT: Face/Nose/Sinus: Normal nares present Mouth: Yes moist mucous membranes Eyes: General: appearance normal, both eyes and all related structures Sclera: sclerae normal Neck: Neck: supple Resp: Effort & Inspection: normal respiratory effort Auscultation: clear to auscultation bilaterally Cardio: Rate: regular rate Rhythm: regular rhythm Other: S1-S2 present without murmur, rub, ectopy GI: Other: Abdomen soft, nondistended. G-tube present with no signs of infection. Normoactive bowel sounds in all quadrants. No tenderness on exam. Skin: General skin exam: normal color and no rashes or lesions noted Wounds: no wounds Neuro: Speech: normal speech Motor exam (neuro): Normal motor muscle tone present throughout Sensory Exam: normal sensation Other: A&O x4 Extrem: General: normal to inspection Psych: Mental Status: mental status grossly normal Affect: normal affect Other: Good insight and judgment, pleasant DS: Data Data Completed and Pending Completed studies during hospitalization: Labs, imaging Labs on day of discharge: Labs from last 24 hours 05/03/25 05/03/25 05/02/25 05:52 05:32 23:57 WBC 8.7 RBC 3.11 L Hgb 7.7 L Hct 24.5 L MCV 78.8 L MCH 24.8 L MCHC 31.4 L RDW 19.8 H Plt Count 423 H MPV 9.6 Sodium 130 L Potassium 3.8 Chloride 100 Carbon Dioxide 30 Anion Gap 0 L BUN 13 Creatinine 0.80 Estim Creat Clear Calc 70 Estimated GFR > 60 Glucose 103 POC Capillary Glucose 108 H 76 Calcium 9.2 05/02/25 05/02/25 05/02/25 19:22 18:07 12:37 WBC 8.3 RBC 3.17 L Hgb 7.8 L Hct 24.9 L MCV 78.5 L MCH 24.6 L MCHC 31.3 L RDW 19.6 H Plt Count 413 H MPV 9.5 Sodium 132 L Potassium 4.0 Chloride 98 Carbon Dioxide 29 Anion Gap 5 BUN 14 Creatinine 0.86 Estim Creat Clear Calc 65 Estimated GFR > 60 Glucose 74 POC Capillary Glucose 90 60 L Calcium 8.9 05/02/25 11:23 WBC RBC Hgb Hct MCV MCH MCHC RDW Plt Count MPV Sodium Potassium Chloride Carbon Dioxide Anion Gap BUN Creatinine Estim Creat Clear Calc Estimated GFR Glucose POC Capillary Glucose 77 Calcium Discharge Plan Discharge Attending physician on discharge: Aimee Tam Consulting providers: Dianelys Arroyo; Jackie Godfrey Discharging Clinician: Jackie Godfrey Anticipated Discharge Date/Time: 05/03/25 13:00 Patient Disposition: Home Activity: as tolerated Diet: tube feeding Discharge Instructions: You were admitted for low hemoglobin (7.7 on day of discharge) and received a blood transfusion (x2 units PRBCs) and IV iron (x2 500mg bags) to improve your blood counts Your hemoglobin improved enough for safe discharge, but ongoing monitoring is required You have a?standing lab order?from your home oncologist to re-check your hemoglobin?have this drawn as directed Keep all follow-up appointments with your oncologist and any other scheduled providers Continue home medications as prescribed;?do not start iron supplements unless directed Maintain a balanced diet; iron-rich foods may help support blood counts Rest as needed and avoid overexertion until cleared by your provider Seek urgent medical care or return to the ER if you have: Worsening fatigue, shortness of breath, chest pain, dizziness, or fainting New or worsening weakness or paleness Black or bloody stools, vomiting blood, or any signs of bleeding Questions or concerns: Contact your home oncologist or primary care team for lab results, medication questions, or symptom changes Continue to check your blood pressure and blood sugar at home if applicable. Keep your scheduled appts with your primary care provider and any specialist that you may see. Thank you for [facility] for your healthcare needs. Patient Instructions: Iron Sucrose (By injection), Anemia (GEN), Blood Transfusion (GEN) Patient Language: Fijian Stand Alone Forms: General Discharge Information Follow-up/Referrals: PHYSICIAN NOT ON STAFF,NONSTAFF [Primary Care Provider] - 2 Weeks Discharge Medications: Continued hydrocodone-acetaminophen 10-325 mg tablet 1 tablet feeding tube Q6H PRN (Reason: pain) cyclobenzaprine 5 mg tablet 10 mg feeding tube Q8H PRN (Reason: muscle spasm) Date of admission: 04/29/25 15:15 Primary Care Provider: PHYSICIAN NOT ON STAFF,NONSTAFF Admitting Provider: Shamar Mcallister Attending physician on admission: Shamar Mcallister Condition: Stable Quality VTE Prophylaxis VTE prophylaxis: mechanical ordered Hospitalist MIPS Heart Failure (Exclusion) Patient has history of Heart Transplant or Left Ventricular Assistive Device?: No IF YES, STOP HERE Heart Failure (Qualifier) Patient has current or prior documentation of LVEF less than or equal to 40%, or mod/servere depressed LVSF?: No IF NO, STOP HERE
[2025-05-03] MEDS: HEPARIN SODIUM LOCK FLUSH 500 UNITS/5 ML SYRINGE IV PUSH (13:15)
== END 2025-05-03 13:20 | disposition home or self-care (01) | DRG 375 ==
LOC: ANHED 15:10 → ANH3MEDSUR 05-01 08:55
PROVIDERS: Internal Medicine Gastroenterology; Nurse Practitioner; Student in an Organized Health Care Education/Training Program; Admitting Provider Family Medicine; Emergency Provider Family Medicine; Visit Provider Internal Medicine
PROC: 0DJ08ZZ Inspection of Upper Intestinal Tract, Via Natural or Artificial Opening Endoscopic (ICD-10-PCS; principal; 2025-05-01 15:00)
DX: C15.9 Malignant neoplasm of esophagus, unspecified (principal); C78.7 Secondary malignant neoplasm of liver and intrahepatic bile duct; C78.89 Secondary malignant neoplasm of other digestive organs; K92.2 Gastrointestinal hemorrhage, unspecified; E87.1 Hypo-osmolality and hyponatremia; E44.1 Mild protein-calorie malnutrition; D63.0 Anemia in neoplastic disease; D50.0 Iron deficiency anemia secondary to blood loss (chronic); Z93.1 Gastrostomy status; R13.10 Dysphagia, unspecified; Z68.24 Body mass index [BMI] 24.0-24.9, adult; E88.09 Other disorders of plasma-protein metabolism, not elsewhere classified
CPT/HCPCS: 36415; 36430; 74174; 80048; 80053; 82607; 82728; 82746; 82948; 83540; 83550; 84443; 85014; 85018; 85025; 85027; 85610; 86850; 86900; 86901; 86923; 96374; 99285; A9270; J1642; J1756; J2003; J2470; J2704; J7030; J7050; J7120; P9016; Q9967